=== PATIENT | female | born 1955 | race Caucasian/White ===

== ENCOUNTER → 2019-10-03 | Outpatient (CLI) | payer MEDICARE, SELFPAY ==
[2019-10-03 15:46] LABS: International Normalized Ratio 2.6; Prothrombin Time (Protime)PT. 27.8 SECONDS (11.7-14.9)
== END | disposition home or self-care (01) ==
LOC: LABSPEC 15:14
PROVIDERS: PCP Family Medicine; Visit Provider Family Medicine
DX: I48.0 Paroxysmal atrial fibrillation (principal); Z79.01 Long term (current) use of anticoagulants
CPT/HCPCS: 85610

== ENCOUNTER 2020-02-17 09:46 | Inpatient (IN) | payer MEDICARE, OTHER, SELFPAY ==
[2020-02-17] VITALS (7 sets, daily range): BP systolic 144–164; BP diastolic 67–82; PULSE 63–77; RESP 14–18; TEMP 36.4–36.6; O2SAT 97–100; BMI 24.7; BMI 25.2; BMI 25.3
--- NOTE | 2020-02-17 10:02 | US_ITS ---
STUDY: ABDOMINAL ULTRASOUND - RIGHT UPPER QUADRANT REASON FOR VISIT: Female, 64 years old RUQ PAIN THIS MORNING, WORSE AFTER EATING- PT IS NOT NPO- TECHNIQUE: Ultrasound evaluation of the right upper quadrant was performed with real-time and static chand-scale imaging. TECHNICAL QUALITY: Adequate. COMPARISON: None. FINDINGS: Liver: The liver measures 16.8 cm. There is normal echogenicity of the liver. The bile ducts are within normal limits. There is hepatic color flow. The direction of portal flow is hepatopetal. There is no demonstrated mass lesion. Gallbladder: Normal distended gallbladder. The gallbladder wall measures 3 mm. There is a positive sonographic Sharif''s sign. There is no pericholecystic fluid. There are multiple echogenic structures within the gallbladder, consistent with multiple gallstones. Common Bile Duct (C.B.D.): The common bile duct measures 7 mm. Pancreas: Normal size of the head, body and tail of the pancreas. There is normal echogenicity of the pancreas. There is no demonstrated pancreatic mass or cyst. Right Kidney: Normal size of the right kidney. The right kidney measures 10.8 cm. Normal renal cortex. The right cortex measures 1.4 cm. There is no demonstrated renal mass or cyst. There is no right hydronephrosis. US/Gallbladder IMPRESSION: Cholelithiasis with positive Sharif''s sign. Mildly dilated common bile duct. Electronically Signed: Marco Kuhn MD at 12:43 EDT , Service support ,
--- NOTE | 2020-02-17 10:02 | ED.VIS.GEN ---
History of Present Illness Chief Complaint: Abd Pain Informant: Patient Narrative: 64-year-old female presenting with abdominal pain which started this morning at about after she woke up. She states that she was able to eat a omelette this morning however this made her abdominal pain worse. She localizes it to the right upper quadrant. She has never had any abdominal surgeries. She is not had a fever or chills. She states that she has nausea without vomiting. No diarrhea or constipation. No urinary or vaginal complaints. - Past Medical History (1) Benign essential HTN Status: Chronic Past Medical History - Allergies and Home Meds Allergies/Adverse Reactions: Allergies No Known Allergies Allergy (Verified 02/17/20 09:46) Prior records reviewed: Yes Past Medical History: - - Atrial fibrillation Surgical History: noncontributory Lives: Spouse/ Significant Other Smoking Status: Never smoker Alcohol: None Drugs: None Review of Systems General: Denies: Chills, Fever, Sweats Eyes: Denies: Visual changes - bilaterally, Diplopia ENT: Denies: Rhinorrhea, Sore throat Cardiovascular: Denies: Chest pain, Palpitations Respiratory: Denies: Dyspnea, Cough, Dyspnea on exertion Gastrointestinal: Reports: Abdominal pain, Nausea. Denies: Vomiting, Diarrhea, Constipation, Melena, Hematochezia Musculoskeletal: Denies: Myalgias, Arthralgias, Neck pain Skin: Denies: Rash, Wounds Neurological: Denies: Headache, Weakness, Numbness Psych: Denies: Depression, Anxiety, Suicidal thoughts, Suicidal ideations, -, - Physical Exam Vital Signs/Narrative: Vital Signs Temp Pulse Resp BP Pulse Ox 02/17/20 09:47 97.6 F L 63 16 164/82 H 99 Inital Vital Signs reviewed: Yes General: Well nourished, No Acute Distress Head: Normocephalic, Atraumatic Eyes: Perrl, EOMI. Negative for: Scleral icterus ENT: Moist mucous membranes, No rhinorrhea Cardiovascular: Regular rate, Regular rhythm Abdomen: Soft, Nondistended, Sharif's sign Back: Nontender, Normal Inspection. Negative for: CVA tenderness Extremities: Nontender, No edema Skin: Normal color, No rash. Negative for: Jaundice Neurological: Alert, Oriented x3 Psychological: Normal affect, Normal Mood Diagnostic/Tx/Re-eval Clinical Impression(s) from Imaging Studies Gallbladder Ultrasound 02/17/20 10:02 IMPRESSION: Cholelithiasis with positive Sharif''s sign. Mildly dilated common bile duct. Electronically Signed: Marco Kuhn MD at 12:43 EDT , Service support , Laboratory Data 02/17/20 02/17/20 02/17/20 10:15 10:15 10:15 WBC 6.7 RBC 4.64 Hgb 13.2 Hct 40.8 MCV 87.9 MCH 28.4 MCHC 32.4 RDW Std Deviation 42.9 RDW Coeff of Dle 13.3 Plt Count 226 MPV 9.8 Immature Gran % (Auto) 0.100 Neut % (Auto) 43.8 L Lymph % (Auto) 47.2 H Kenedy % (Auto) 6.9 Eos % (Auto) 1.6 Baso % (Auto) 0.4 Absolute Neuts (auto) 2.9 Absolute Lymphs (auto) 3.16 Nucleated RBC % 0 PT 34.6 H INR 3.5 H* Sodium 138 Potassium 4.1 Chloride 105 Carbon Dioxide 31.0 Anion Gap 2 L BUN 11 Creatinine 0.61 Estim Creat Clear Calc 72.72 Est GFR (MDRD) Af Amer 126 Est GFR (MDRD) Non-Af 104 BUN/Creatinine Ratio 18.0 Glucose 119 H Calcium 9.6 Total Bilirubin 0.30 AST 20 ALT 40 Alkaline Phosphatase 65 Total Protein 7.2 Albumin 3.8 Globulin 3.4 Albumin/Globulin Ratio 1.1 Lipase 131 Urine Color Urine Clarity Urine pH Ur Specific [place] Urine Protein Urine Glucose (UA) Urine Ketones Urine Occult Blood Urine Nitrite Urine Bilirubin Urine Urobilinogen Ur Leukocyte Esterase Urine RBC Urine WBC Ur Squamous Epith Cells Urine Bacteria Urine Mucus 02/17/20 11:30 WBC RBC Hgb Hct MCV MCH MCHC RDW Std Deviation RDW Coeff of Del Plt Count MPV Immature Gran % (Auto) Neut % (Auto) Lymph % (Auto) [place] % (Auto) Eos % (Auto) Baso % (Auto) Absolute Neuts (auto) Absolute Lymphs (auto) Nucleated RBC % PT INR Sodium Potassium Chloride Carbon Dioxide Anion Gap BUN Creatinine Estim Creat Clear Calc Est GFR (MDRD) Af Amer Est GFR (MDRD) Non-Af BUN/Creatinine Ratio Glucose Calcium Total Bilirubin AST ALT Alkaline Phosphatase Total Protein Albumin Globulin Albumin/Globulin Ratio Lipase Urine Color Yellow Urine Clarity Clear Urine pH 6.5 Ur Specific [place] 1.020 Urine Protein Negative Urine Glucose (UA) Normal Urine Ketones Negative Urine Occult Blood Negative Urine Nitrite Negative Urine Bilirubin Negative Urine Urobilinogen Normal Ur Leukocyte Esterase 100 H Urine RBC 0 SEEN Urine WBC 0-5 SEEN Ur Squamous Epith Cells 0 SEEN Urine Bacteria 0 SEEN Urine Mucus 0 SEEN - Medical Decision Making Patient was seen and evaluated on arrival for right upper quadrant pain. She states that it started this morning prior to eating but she felt worse after having an omelette. She denies fever, chills. She has nausea without vomiting. She denies constipation. On exam she has a Sharif sign. Lab work-up was ultimately unremarkable section of supratherapeutic INR. Right upper quadrant ultrasound shows cholelithiasis with dilated common bile duct. Patient was discussed with Dr. Esteban who accepted admission. Impression: 1. Supratherapeutic INR 2. Cholelithiasis dilated common bile duct ED Disposition - Plan for ED Patient: Disposition: Acute Care Hospital [facility]
[2020-02-17] MEDS: 0.9% Normal Saline 1,000 ML 1000 ML IV (10:26)
[2020-02-17] MEDS: Ondansetron 4 MG/2 ML Vial IV (10:26)
[2020-02-17] MEDS: Morphine 4 MG/ML Syringe IV ×2 (10:27→13:31)
[2020-02-17 10:30] LABS: Absolute Lymphocyte Count 3.16 X10^3/uL (0.83-4.51); Absolute Neutrophil Count 2.9 X10^3/uL (2.0-7.7); Basophil# 0.03 X10^3/uL; Basophil% 0.4 % (0-1); Eosinophil# 0.11 X10^3/uL; Eosinophils% 1.6 % (0-5); Hematocrit 40.8 % (37-47); Hemoglobin 13.2 g/dL (12.0-15.0); Lymphocyte # 3.16 X10^3/ul (4.0); Lymphocyte % 47.2 % (19-41); Mean Corp Hgb Conc 32.4 g/dL (32-36); Mean Corpuscular Hgb 28.4 pg (27.0-32.0); Mean Corpuscular Volume 87.9 fL (81-99); Mean Platelet Vol. 9.8 fl (6.2-12.0); Monocyte# 0.46 X10^3/uL; Monocyte% 6.9 % (0-10); NRBC Flagged by Analyzer 0 % (0-5); Neutrophil # 2.93 X10^3/uL (2.7-7.7); Neutrophil % 43.8 % (47-70); Platelet Count 226 K/mm3 (150-450); RBC Distribution Width CV 13.3 % (11.6-14.6); RBC Distribution Width SD 42.9 fl (35.1-43.9); Red Blood Count 4.64 M/mm3 (4.2-5.4); White Blood Count 6.7 K/mm3 (4.4-11.0)
[2020-02-17 10:36] LABS: International Normalized Ratio 3.5; Prothrombin Time (Protime)PT. 34.6 SECONDS (11.7-14.9)
[2020-02-17 10:40] LABS: ALB/GLOB Ratio 1.1 RATIO (0.9-2.4); AST(SGOT) 20 U/L (15-37); Alanine Aminotransfer ALT/SGPT 40 U/L (13-56); Albumin, Serum 3.8 g/dL (3.2-5.0); Alkaline Phosphatase 65 U/L (45-117); Anion Gap 2 (5-15); BUN 11 mg/dL (7-18); Calcium,Total 9.6 mg/dL (8.5-10.1); Chloride 105 mmol/L (98-107); Creatinine, Serum 0.61 mg/dL (0.55-1.02); EST Glomerular Filtration Rate 104 mL/min (>60); Est Glom Filt Rate - Afr Amer 126 mL/min (>60); Estimated Creatinine Clearance 72.72 ml/min; Globulin 3.4 g/dL (2.2-4.2); Glucose 119 mg/dL (74-106); Lipase 131 U/L (73-393); Potassium 4.1 mmol/L (3.5-5.1); Protein, Total 7.2 g/dL (6.4-8.2); Sodium Level 138 mmol/L (136-145)
[2020-02-17 11:37] LABS: Bacteria 0 SEEN /hpf (None Seen); Mucous, Urine 0 SEEN /hpf (<or=2+); Red Blood Cells-Urine 0 SEEN /hpf (0-5); Squamous Epithelial Cells - UA 0 SEEN /hpf (5-10)
[2020-02-17 11:40] LABS: Color, Urine Yellow (Yellow); Glucose, Dipstick Normal (Normal); Ketone-Dipstick Negative (Negative); Leukocyte Esterase-Dipstick 100 /ul (Negative); Nitrite-Dipstick Negative (Negative); Occult Blood-Urine Negative /ul (Negative); Protein-Dipstick Negative (Negative); Urine Bilirubin Dipstick Negative (Negative); Urine Clarity Clear (Clear); Urine Urobilinogen Normal (Normal); Urine pH 6.5 (5.0 - 8.0)
[2020-02-17 11:49] LABS: White Blood Cells 0-5 SEEN /hpf (0-5)
[2020-02-17] MEDS: Ondansetron 4 MG/2 ML Vial IM (13:30)
--- NOTE | 2020-02-17 16:29 | CON.PCM_ITS ---
Problem List (1) Status post placement of cardiac pacemaker Status: Chronic (2) Chronic atrial fibrillation Status: Chronic (3) Depression Status: Chronic (4) Benign essential HTN Status: Chronic Reason for Consult Date of Consultation: 02/17/20 Reason for Consultation: Preoperative medical evaluation. History of Present Illness: The patient is a 64 year old F with past medical history as mentioned above presented to the emergency room because of abdominal pain. She mentioned that over the last couple of days, she has been feeling not well and today morning after she woke up, she started having abdominal pain, right upper quadrant abdominal pain, sharp pain, 8 out of 10 in severity, not radiating, constant pain, associated with nausea without vomiting and without aggravating or relieving factors. She denies fever or chills. She denies upper chest pain, shortness of breath, palpitation, dizziness or lightheadedness. She was admitted for acute cholecystitis by general surgery and I was asked to see the patient for preoperative evaluation as well as postoperative management. Patient lives at home and she does have daily activities without any restrictions. She will history of chronic atrial fibrillation status post pacemaker and she has been on Coumadin for anticoagulation. She will history of hypertension and she has been on lisinopril and metoprolol and her blood pressure has been under control. At this time, her vital signs are stable. Her routine blood work was unremarkable. LFTs and lipase were normal. INR was 3.5. Ultrasound gallbladder revealed gallstones with positive Sharif sign, CBD is 7 mm and admission diagnosis was acute calculus cholecystitis. Past Medical History Past Medical History (Chronic Problems): Chronic Problems Status post placement of cardiac pacemaker (Chronic) Chronic atrial fibrillation (Chronic) Depression (Chronic) Benign essential HTN (Chronic) Allergies No Known Allergies Allergy (Verified 02/17/20 09:46) Home Medications: Ambulatory Orders Medication Instructions Recorded Acetaminophen [Tylenol Extra 1,000 mg PO Q8H PRN PRN 02/17/20 Strength] Alprazolam [Xanax] 0.125 mg PO QHS PRN 02/17/20 Calcium Carbonate/Vitamin D3 1 ea PO DAILY 02/17/20 [Calcium 250+D Tablet] Calcium Carbonate/Vitamin D3 1 tab PO DAILY 02/17/20 [Calcium 500-Vit D3 600 Caplet] Ergocalciferol [Vitamin D] 50,000 unit PO WE 02/17/20 Lisinopril [Prinivil] 10 mg PO QHS 02/17/20 Metoprolol Tartrate 25 mg PO BID 02/17/20 Vitamin B Complex [B Complex] 1 ea PO QHS 02/17/20 Warfarin [Coumadin ([facility])] 3 mg PO WESA 02/17/20 Warfarin [Coumadin ([facility])] 6 mg PO SUMOTUTHFR 02/17/20 Surgical History: hysterectomy, tonsillectomy, - - Spinal fusion. Psychiatric History: Anxiety [employer] INTER[employer] History: No pertinent [employer] history Lives: Spouse/ Significant Other Smoking Status: Former smoker Alcohol: None Drugs: None - *Family History Maternal History Items: No pertinent history Paternal History Items: No pertinent history Review of Systems Constitutional: Denies: Anorexia, Chills, Fever, Weakness, Fatigue Eyes: Denies: Blurred vision, Double vision, Drainage, Redness HEENT: Denies: Difficulty Hearing, Ear Pain, Eye Pain, Nasal Congestion, Sore Throat Cardiovascular: Denies: Chest Pain, Chest Pressure, Edema, Heaviness, Light Headedness, Palpitations, Syncope Respiratory: Denies: Cough, Pleuritic Pain, Shortness of Breath, Sputum production, Wheezing Gastrointestinal: Reports: Abdominal Pain, Nausea. Denies: Constipation, Diarrhea, Vomiting Genitourinary: Denies: Dysuria, Frequency, Hematuria Musculoskeletal: Denies: Arm Pain, Back Pain, Foot Pain Skin: Denies: Dryness, Rash Neurological: Denies: Balance problems, Double vision, Change in Speech, Slurred speech, Confusion, Headaches, Incoordination Psychiatric: Reports: Anxiety. Denies: Depression Endocrine: Denies: Change in Body Habitus, Polydipsia, Polyuria - Physical Exam Vitals/I&O's: Vital Signs Temp Pulse Resp BP Pulse Ox 98 F 77 16 144/82 H 98 02/17/20 14:54 02/17/20 14:54 02/17/20 14:54 02/17/20 14:54 02/17/20 14:54 Oxygen Delivery Method Room Air Weight: 138 lb 1.6 oz Body Mass Index (BMI) 25.2 Intake and Output for Last 24 Hours 02/15/20 02/16/20 02/17/20 23:59 23:59 23:59 Intake Total 1000 / 1000 Balance 1000 / 1000 General: Alert, Oriented x3, Cooperative, No apparent distress HEENT: Atraumatic, PERRLA, EOMI, Normocephalic Oral: Moist Mucosa, No Gingival or Mucosal Lesions/ Ulcerations Neck: Supple, No JVD, Negative Carotid Bruits, Trachea Midline, Thyroid Normal Size and Texture Lungs: Clear to auscultation, Normal air movement, No rhonchi, No wheeze, No rales, Diminished Cardiovascular: Normal S1, Normal S2, No murmurs, PMI Normal, Irregular Rate Abdomen: Bowel Sounds Present, Soft, Non-Distended, No Hepato-splenomegaly, Tender - Right upper quadrant tenderness, no guarding or rigidity. Extremities: No clubbing, No cyanosis, No edema Skin: No rashes, No breakdown Lymphatic: No Cervical, Supraclavicular, or Inguinal Adenopathy Neurological: Cranial nerves II-XII grossly intact, Motor Exam 5/5 strength throughout Psych/Mental Status: Normal Affect, Appropriate, Alert and oriented to time, place, person, mood and affect Laboratory Results 02/17/20 10:15: WBC 6.7, RBC 4.64, Hgb 13.2, Hct 40.8, MCV 87.9, MCH 28.4, MCHC 32.4, RDW Std Deviation 42.9, RDW Coeff of Del 13.3, Plt Count 226, MPV 9.8, Immature Gran % (Auto) 0.100, Neut % (Auto) 43.8 L, Lymph % (Auto) 47.2 H, [place] % (Auto) 6.9, Eos % (Auto) 1.6, Baso % (Auto) 0.4, Absolute Neuts (auto) 2.9, Absolute Lymphs (auto) 3.16, Nucleated RBC % 0 02/17/20 10:15: Sodium 138, Potassium 4.1, Chloride 105, Carbon Dioxide 31.0, Anion Gap 2 L, BUN 11, Creatinine 0.61, Estim Creat Clear Calc 72.72, Est GFR (MDRD) Af Amer 126, Est GFR (MDRD) Non-Af 104, BUN/Creatinine Ratio 18.0, Glucose 119 H, Calcium 9.6, Total Bilirubin 0.30, AST 20, ALT 40, Alkaline Phosphatase 65, Total Protein 7.2, Albumin 3.8, Globulin 3.4, Albumin/Globulin Ratio 1.1, Lipase 131 02/17/20 10:15: PT 34.6 H, INR 3.5 H* 02/17/20 11:30: Urine Color Yellow, Urine Clarity Clear, Urine pH 6.5, Ur Specific [place] 1.020, Urine Protein Negative, Urine Glucose (UA) Normal, Urine Ketones Negative, Urine Occult Blood Negative, Urine Nitrite Negative, Urine Bilirubin Negative, Urine Urobilinogen Normal, Ur Leukocyte Esterase 100 H, Urine RBC 0 SEEN, Urine WBC 0-5 SEEN, Ur Squamous Epith Cells 0 SEEN, Urine Bacteria 0 SEEN, Urine Mucus 0 SEEN Clinical Impression(s) from Imaging Studies Gallbladder Ultrasound 02/17/20 10:02 IMPRESSION: Cholelithiasis with positive Sharif''s sign. Mildly dilated common bile duct. Electronically Signed: Marco Kuhn MD at 12:43 EDT , Service support , Current Medications Hydrocodone Bitart/Acetaminophen ([place] 5mg-325mg) 1 tablet PO Q4H PRN PRN PRN Reason: Pain Score 1-5 Alprazolam (Xanax) 0.125 mg PO QHS PRN PRN Reason: ANXIETY Sodium Chloride () 1,000 mls @ 75 mls/hr IV .[id number] SUNI Cefotetan Disodium 1 gm/ (Sodium Chloride) 50 mls @ 100 mls/hr IV Q12 SUNI Lisinopril (Zestril) 10 mg PO QHS SUNI Metoprolol Tartrate (Lopressor (Beta Scott)) 25 mg PO BID SUNI Morphine Sulfate () 2 mg IV Q1H PRN PRN PRN Reason: Pain Score 6-10 Ondansetron HCl (Zofran) 4 mg IV Q8H PRN PRN PRN Reason: NAUSEA/VOMITING Sodium Chloride () 10 - 40 ml IV UD PRN PRN Reason: SALINE FLUSH Assessment/Plan This is a 64 years old female patient presented to the emergency room because of abdominal pain, found to have findings consistent with acute cholecystitis and I am seeing this patient for preoperative evaluation as well as postoperative medical management. #1 abdominal pain/acute calculus cholecystitis: Ultrasound gallbladder reviewed. LFT and lipase were unremarkable. Patient is afebrile, no leukocytosis. She does have significant right upper quadrant tenderness. She was admitted by general surgery, started on IV antibiotics. She is on IV fluids and IV morphine as needed for pain. General surgery on the case, planning for surgery in the next day or 2. #2 preoperative evaluation: Patient with past history of chronic atrial fibrillation on Coumadin, history of hypertension. Patient lives at home and doing her daily activities without restrictions. Based on her age, past medical history, functional status and kidney function, and estimated risk for perioperative myocardial infarction or cardiac arrest is 0.20%. Patient had 2D echocardiogram on November, revealed ejection fraction of 64% and there was no change compared to echocardiogram from November,. She had a stress test back on November, that showed no evidence of stress-induced myocardial ischemia. Based on ACS NSQIP surgical risk calculator, her risk for serious complications is below average. Plan: Preoperative EKG, chest x-ray. If both chest x-ray and EKG were unremarkable, we can proceed with surgery. #3 chronic atrial fibrillation: Currently, rate is controlled, continue metoprolol for rate control. INR is 3.5, alternate, give vitamin K, repeat INR tomorrow morning. #4 hypertension: Blood pressure stable, continue lisinopril and metoprolol. #5 anxiety: Continue Xanax as needed. #6 DVT prophylaxis: SCDs. This note was generated with [employer] dictation software. It may contain incorrect words, spelling, and punctuation that were not noted in checking the note before signing. Inpatient E&M: 89294 Init Hosp L2
[2020-02-17] MEDS: 0.9% Normal Saline 1,000 ML 75 ML IV (16:32)
[2020-02-17] MEDS: 0.9% Saline Lock 10 ML Syringe IV ×2 (16:33→22:56)
--- NOTE | 2020-02-17 16:33 | PCM.HP.BLA ---
History and Physical Date of Admission: 02/17/20 Chief Complaint - abdominal pain HISTORY OF PRESENT ILLNESS: 64 y/o WF with cardiac arrythmia with pacemaker implant presents with right upper quadrant abdominal pain for < 1 day. Very severe and sharp, she presented to ED. Denies previous such pain. Work up in the [facility] ED - normal WBC, normal LFTs. Gallbladder US with multiple gallstones noted. Has nausea, denies emesis. Patient with intractable pain and therefore admitted to hospital for pain control. She is also on coumadin for chronic atrial fibrillation - INR is 3.5 with PT of 34.6. PAST MEDICAL HISTORY Anxiety ? Atrial flutter (HCC) ? Essential hypertension, benign ? Hyperlipidemia ? Paroxysmal atrial fibrillation (HCC) ? PMH - PAST MEDICAL HISTORY OF ? ? back pain, scoliosis, s/p fusion in 1970 Prediabetes ? Tachycardia-bradycardia syndrome (HCC) ?paroxysmal atrial fibrillation and evidence of tachy-bradycardia syndrome noted on recent Holter monitor. ? Echocardiogram 11/18/19 CONCLUSIONS: - Technically difficult exam due to body habitus. - Exam indication: Sustained atrial fibrillation - The left ventricle is normal in size. Left ventricular systolic function is normal. EF = 64 ? 5% (2D biplane) Definity contrast used for endocardial border detection. Left ventricular diastolic function was not evaluated due to AF. - The right ventricle is normal in size. Right ventricular systolic function is normal. - The left atrial cavity is mildly dilated. - There are no significant valvular abnormalities. - Exam was compared with the prior echocardiographic exam performed on 11/16/2017 There is no significant change Lexiscan Myoview Stress 11/24/17 CONCLUSIONS: ? 1. SPECT Perfusion Study: Normal. ? 2. There is no scintigraphic evidence for inducible ischemia. ? 3. No evidence of scarred myocardium. ? 4. Functional capacity N/A (pharmacological). ? 5. Left ventricle is normal in size. The left ventricle systolic function is hyperdynamic. ? 6. Right ventricle is normal in size. The right ventricle systolic function is normal. ? 7. This is a low risk scan. ?Gated Stress FBP ?LVEF % 77? ? PAST SURGICAL HISTORY BASIC PACEMAKER DUAL CHAMBER Left 12/24/2019 ? Dual-chamber pacemaker (Medtronic, MRI compatible after [address] weeks) [address] Dr[address] Mart at [facility] 12/24/19 and underwent procedure on the same day by Dr. Mart for insertion of dual-chamber permanent pacemaker left side of chest due to slow heart rate at times LIGATE FALLOPIAN TUBE ? 1982 ? Tubal ligation, incidental appy PAST SURGICAL HISTORY OF ? 1970 ? Spinal fusion for scoliosis x 2 REMOVAL OF TONSILS,<12 Y/O ? 1959 ? Tonsillectomy VAGINAL HYSTERECTOMY ? 1986 ? Hysterectomy, vaginal ? FAMILY HISTORY ? Hypertension Mother ? ? Emphysema Mother ? ? COPD ? Cancer Father ? ? Lung, brain ? Cancer Sister ? ? Leukemia ? Cancer Sister ? ? Thyroid ? ALLERGIES ? Grass Pollen Cough ? ? sneezing ?? MEDICATIONS: ? metoprolol tartrate, short acting, (LOPRESSOR) 25 mg tablet Take 1 tablet by mouth every 12 hours. ? warfarin (COUMADIN) 6 mg tablet 3 mg every Mon, Mon; 6 mg all other days ? calcium carbonate (CALCIUM 600) 600 mg calcium (1,500 mg) tab Take 600 mg by mouth once daily. ? vitamin B complex (B COMPLEX 1 ORAL) Take 1 tablet by mouth once daily. ? ALPRAZolam (XANAX) 0.25 mg tablet Take 1 tablet by mouth twice daily as needed for up to 90 days. ? lisinopril (ZESTRIL, PRINIVIL) 10 mg tablet Take 1 tablet by mouth once daily. ? cholecalciferol, Vitamin D3, (VITAMIN D3) 50,000 unit cap capsule Take 1 capsule by mouth one time a week. ? nitroglycerin sublingual (NITROQUICK) 0.4 mg SL tablet Dissolve 0.4mg tab (1tab) under tongue every 5min as needed for chest pain. If no response after max 3 tabs go to ED/notify doctor. ? Magnesium 250 mg tab Take 1 tablet by mouth once daily. ?? ? SOCIAL HISTORY Tobacco Use ? Smoking status: Former Smoker ? ? Quit date: 05/08/1974 ? ? Years since quittin.7 ? Smokeless tobacco: Never Used ? Tobacco comment: 40 + years ago Substance Use Topics ? Alcohol use: No ? Drug use: Not Currently ? ? Frequency: 1.0 times per week ? REVIEW OF SYSTEMS: General - denies fevers, denies anorexia, denies weight loss Cardiovascular - denies chest pain, recent placement of dual chamber pacemaker see above Pulmonary - denies shortness of breath, denies coughing up blood Gastrointestinal - see HPI Neurological - denies seizures, denies chronic numbness/weakness of extremities, denies chronic headaches Genitourinary - denies burning with urination, denies blood in urine Hematological - on coumadin Skin - denies nonhealing skin wounds Musculoskeletal - no new muscle/bone pain Endocrine - has pre-diabetes, no thyroid problems Psychological ? denies hallucinations ? PHYSICAL EXAM: BP 156/77 HR 72 RR 16 Temp 97.6F Ht: 5'2 Wt: 138# ? General Appearance: Well appearing, alert, in no acute distress, well-hydrated, well nourished.. Lungs: Lungs clear to auscultation. No wheezing, rhonchi, rales.. Heart: RRR without murmur, gallop, or rubs. No ectopy. Abdomen: soft with right upper quadrant tenderness with Sharif's sign Extremities without pitting edema Neuro - non focal Psych - calm and appropriate IMPRESSION: intractable RUQ abdominal pain cholelithiasis DISCUSSION/PLAN I have discussed the above with the patient. I have offered the patient the procedure of laparoscopic cholecystectomy possible cholangiograms. I have explained the procedure to the patient. I have counseled the patient as to the risks of the procedure, including but not limited to: infection, bleeding, injury to any blood vessels/nerves, scar tissue, injury to any intraabdominal organs, injury to kidney/ureters, injury to bowel/bladder, injury to the common bile duct/biliary tree, bile leakage, intraabdominal abscess/bleeding, hernias at incisional sites, wound infections, possible open procedure, complications of anesthesia, postoperative pneumonia/cardiac problems/blood clots etc. the patient understands. The patient was offered a surgery/procedure. The provider and patient have discussed in detail the risk of exposure to and/or potential harm posed by the COVID-19 virus with having a surgery/procedure at this time versus the risk of delaying the surgery/procedure. It is not possible to know either the risk of delaying the surgery or procedure or chance of getting an infection with perfect accuracy, but a joint decision was made between the patient and the provider to proceed at this time with the scheduled surgery/procedure. She wishes to proceed. Will tentatively schedule for surgery on Monday. (I tried to contact the surgery scheduling desk to schedule this patient -prior to 5:00 pm - but no one is answering = and I have left a message) I have told patient that if she feels improved in the morning, I can discharge her with plans to have her return Monday. I have answered all questions to the patient?s satisfaction and the patient has no further questions. Appreciate Internal Medicine consultation for perioperative medical management of this patient.
--- NOTE | 2020-02-17 16:40 | EKG12_ITS ---
Test Reason : PRE-OP Blood Pressure : / mmHG Vent. Rate : 062 BPM Atrial Rate : 248 BPM P-R Int : 000 ms QRS Dur : 094 ms QT Int : 432 ms P-R-T Axes : 094 055 -29 degrees QTc Int : 438 ms Atrial flutter with variable A-V block T wave abnormality, consider inferior ischemia Abnormal ECG When compared with ECG of 09-APR-2011 05:50, Atrial flutter has replaced Sinus rhythm T wave inversion now evident in Inferior leads Nonspecific T wave abnormality now evident in Lateral leads Confirmed by TAYLOR BOLTON, BRANDON ([id number]), business editor MARY WOLF ([id number]) on 02/24/2020 9:00:07 A M Referred By: MAXX Confirmed By:SAL VAZQUEZ MD
--- NOTE | 2020-02-17 16:50 | RAD_ITS ---
STUDY: X-RAY CHEST REASON FOR EXAM: Female, 64 years old. Preop, surgery on Monday. TECHNIQUE: PA and lateral views of the chest. COMPARISON: Comparison is made with prior study dated 04/08/2011. FINDINGS: Hyperinflation. The lungs are clear. Mild blunting of both costophrenic angles. Normal size heart. Left dual-chamber pacemaker is in situ. Normal mediastinum and katie. Normal visualized pulmonary arteries. Normal visualized aortic arch and descending thoracic aorta. There are diffuse degenerative changes of the visualized thoracic spine. Marked degree of the dextroscoliosis of the thoracic spine and levoscoliosis of the visualized lumbar spine. Normal visualized ribs, clavicles, and shoulders. There is no demonstrated abnormality of the visualized soft tissue structures of the upper abdomen. RAD/Chest PA and Lateral IMPRESSION: Hyperinflation. Scoliosis. The lungs are clear. Electronically Signed: Joshua Zhang, at 8:37 EDT , Service support ,
[2020-02-17] MEDS: Phytonadione (Vit K1) 5 MG TABLET PO (17:23)
[2020-02-17] MEDS: Morphine 2 MG/ML Syringe IV ×2 (18:15→22:56)
[2020-02-17] MEDS: ALPRAZolam 0.25 MG Tablet PO (22:06)
[2020-02-17] MEDS: Metoprolol Tartrate 25 MG Tablet PO (22:10)
[2020-02-17] MEDS: Lisinopril 10 MG Tablet PO (22:10)
[2020-02-18] MEDS: 0.9% Normal Saline 1,000 ML 75 ML IV ×2 (04:39→18:21)
[2020-02-18 04:40] VITALS: BP 125/71; PULSE 60; RESP 18; TEMP 36.8; O2SAT 96
[2020-02-18] MEDS: Morphine 2 MG/ML Syringe IV ×4 (04:45→22:19)
[2020-02-18] MEDS: 0.9% Saline Lock 10 ML Syringe IV ×4 (04:48→22:19)
[2020-02-18 06:06] LABS: Prothrombin Time (Protime)PT. 34.5 SECONDS (11.7-14.9)
[2020-02-18 06:08] LABS: International Normalized Ratio 3.5
[2020-02-18 08:25] LABS: Hemoglobin A1c 6.1 % (3.8-5.6)
[2020-02-18] MEDS: Phytonadione (Vit K1) 5 MG TABLET PO (08:29)
--- NOTE | 2020-02-18 09:46 | PCM.PN.HOSP ---
Reason for Visit: Follow-up for acute cholecystitis, perioperative management Objective: Seen and examined. Patient has left subclavicular pacemaker. History of chronic A. fib on Coumadin. INR supratherapeutic. Patient abdominal pain is controlled. Her symptoms are started with nausea, burping and bloating sensation that worsens with right upper quadrant abdominal pain for 1 day, severe in nature, stabbing in quality. Right upper quadrant gallbladder ultrasound shows multiple gallstones. No fever. Physical exam General: Alert, Oriented x3, Cooperative HEENT: Atraumatic, PERRLA, EOMI, Normocephalic Oral: No Gingival or Mucosal Lesions/ Ulcerations Neck: Supple, No JVD, Negative Carotid Bruits Lungs: Air entry equal in bilateral lung bases. No crepitation/rhonchi Cardiovascular: Regular rate and rhythm, Normal S1, Normal S2, Left subclavian pacemaker. No murmur Abdomen: Bowel Sounds Present, Soft, mild right upper quadrant tenderness present on deep inspiration. Non-Distended : No renal angle tenderness. No suprapubic tenderness. Extremities: No edema, Capillary Refill Less than 3 Seconds Skin: No rashes, No breakdown Musculoskeletal: No Tenderness to Palpation of Joints or Extremities Neurological: Cranial nerves II-XII grossly intact, Deep Tendon Reflexes 2+/4 and Symmetrical, Neuro grossly intact Psych/Mental Status: Normal Affect, Appropriate. Vitals/I&O's: Vital Signs Temp Pulse Resp BP Pulse Ox 98.3 F 60 18 125/71 H 96 02/18/20 04:40 02/18/20 04:40 02/18/20 04:40 02/18/20 04:40 02/18/20 04:40 Oxygen Delivery Method Room Air Weight: 138 lb 1.6 oz Body Mass Index (BMI) 25.2 Intake and Output for Last 24 Hours 02/16/20 02/17/20 02/18/20 23:59 23:59 23:59 Intake Total 2732.5 / 2732.5 678.75 / 678.75 Output Total 400 / 400 Balance 2332.5 / 2332.5 678.75 / 678.75 Laboratory Results 02/17/20 10:15: WBC 6.7, RBC 4.64, Hgb 13.2, Hct 40.8, MCV 87.9, MCH 28.4, MCHC 32.4, RDW Std Deviation 42.9, RDW Coeff of Del 13.3, Plt Count 226, MPV 9.8, Immature Gran % (Auto) 0.100, Neut % (Auto) 43.8 L, Lymph % (Auto) 47.2 H, [place] % (Auto) 6.9, Eos % (Auto) 1.6, Baso % (Auto) 0.4, Absolute Neuts (auto) 2.9, Absolute Lymphs (auto) 3.16, Nucleated RBC % 0 02/17/20 10:15: Sodium 138, Potassium 4.1, Chloride 105, Carbon Dioxide 31.0, Anion Gap 2 L, BUN 11, Creatinine 0.61, Estim Creat Clear Calc 72.72, Est GFR (MDRD) Af Amer 126, Est GFR (MDRD) Non-Af 104, BUN/Creatinine Ratio 18.0, Glucose 119 H, Calcium 9.6, Total Bilirubin 0.30, AST 20, ALT 40, Alkaline Phosphatase 65, Total Protein 7.2, Albumin 3.8, Globulin 3.4, Albumin/Globulin Ratio 1.1, Lipase 131 02/17/20 10:15: PT 34.6 H, INR 3.5 H* 02/17/20 11:30: Urine Color Yellow, Urine Clarity Clear, Urine pH 6.5, Ur Specific [place] 1.020, Urine Protein Negative, Urine Glucose (UA) Normal, Urine Ketones Negative, Urine Occult Blood Negative, Urine Nitrite Negative, Urine Bilirubin Negative, Urine Urobilinogen Normal, Ur Leukocyte Esterase 100 H, Urine RBC 0 SEEN, Urine WBC 0-5 SEEN, Ur Squamous Epith Cells 0 SEEN, Urine Bacteria 0 SEEN, Urine Mucus 0 SEEN 02/18/20 05:30: PT 34.5 H, INR 3.5 H* 02/18/20 05:30: Hemoglobin A1c 6.1 H Current Medications Hydrocodone Bitart/Acetaminophen ([place] 5mg-325mg) 1 tablet PO Q4H PRN PRN PRN Reason: Pain Score 1-5 Alprazolam (Xanax) 0.25 mg PO QHS PRN PRN Reason: ANXIETY Last Admin: 02/17/20 22:06 Dose: 0.25 mg Documented by: Sodium Chloride () 1,000 mls @ 75 mls/hr IV .[id number] SUNI Last Admin: 02/18/20 04:39 Dose: 75 mls/hr Documented by: Cefotetan Disodium 1 gm/ (Sodium Chloride) 50 mls @ 100 mls/hr IV Q12 [facility] Last Infusion: 02/17/20 22:41 Dose: Infused Documented by: Lisinopril (Zestril) 10 mg PO QHS [facility] Last Admin: 02/17/20 22:10 Dose: 10 mg Documented by: Metoprolol Tartrate (Lopressor (Beta Scott)) 25 mg PO BID [facility] Last Admin: 02/17/20 22:10 Dose: 25 mg Documented by: Morphine Sulfate () 2 mg IV Q1H PRN PRN PRN Reason: Pain Score 6-10 Last Admin: 02/18/20 04:45 Dose: 2 mg Documented by: Ondansetron HCl (Zofran) 4 mg IV Q8H PRN PRN PRN Reason: NAUSEA/VOMITING Sodium Chloride () 10 - 40 ml IV UD PRN PRN Reason: SALINE FLUSH Last Admin: 02/18/20 04:48 Dose: 10 ml Documented by: Medical Necessity - Tobacco Use Smoking Status: Former smoker Tobacco Use: Cigarettes Assessment/Plan This is a 64 years old female patient presented to the emergency room because of abdominal pain, found to have findings consistent with acute cholecystitis and I am seeing this patient for preoperative evaluation as well as postoperative medical management. #1 acute calculus cholecystitis: Patient heart rate and blood pressure controlled. Gallbladder ultrasound shows multiple gallstones, GB wall 3 mm and CBD 7 mm mildly dilated. INR is still elevated. Patient had total 10 mg vitamin K. If INR is still elevated tomorrow a.m., will need 2 units of FFP for surgery. Plan for lap cholecystectomy tomorrow. #2 preoperative evaluation: Patient with past history of chronic atrial fibrillation on Coumadin, history of hypertension. Based on her age, past medical history, functional status and kidney function, and estimated risk for perioperative myocardial infarction or cardiac arrest is 0.20%. Patient had 2D echocardiogram on November, revealed ejection fraction of 64% and there was no change compared to echocardiogram from November,. She had a stress test back on November, that showed no evidence of stress-induced myocardial ischemia. Based on ACS NSQIP surgical risk calculator, her risk for serious complications is below average. Chest x-ray individually reviewed shows lungs clear with hyperinflation. Pacemaker on left subclavicular line. Twelve-lead EKG shows A. fib at 62 bpm. Nonspecific T wave abnormality. #3 chronic atrial fibrillation: Currently, rate is controlled, continue metoprolol for rate control. INR is 3.5, alternate, give vitamin K, repeat INR tomorrow morning. #4 hypertension: Blood pressure stable, continue lisinopril and metoprolol. #5 anxiety: Continue Xanax as needed. #6 DVT prophylaxis: SCDs. Clinical Impression(s) from Imaging Studies Gallbladder Ultrasound 02/17/20 10:02 IMPRESSION: Cholelithiasis with positive Sharif''s sign. Mildly dilated common bile duct. Chest X-Ray 02/17/20 16:50 IMPRESSION: Hyperinflation. Scoliosis. The lungs are clear. Inpatient E&M: 25560 Subs Hosp L2
[2020-02-18 09:58] VITALS: PULSE 63
[2020-02-18] MEDS: Metoprolol Tartrate 25 MG Tablet PO ×2 (09:58→22:18)
[2020-02-18 10:15] VITALS: BP 153/81; PULSE 68; RESP 14; TEMP 36.8; O2SAT 100
[2020-02-18 12:59] LABS: International Normalized Ratio 2.3
--- NOTE | 2020-02-18 13:22 | NURSING ---
Spoke with [facility] Cardiology office, CIED form was faxed 02/17/20 and not return form noted at this time. Office stated to fax to the device clinic at [phone]. Form faxed at at this time.
--- NOTE | 2020-02-18 13:55 | PN.SURG_ITS ---
Subjective: patient still require IV pain medications, states that she does not feel comfortable - Physical Exam Vitals/I&O's: Vital Signs Temp Pulse Resp BP Pulse Ox 98.2 F 68 14 153/81 H 100 02/18/20 10:15 02/18/20 10:15 02/18/20 10:15 02/18/20 10:15 02/18/20 10:15 Oxygen Delivery Method Room Air Weight: 62.641 kg Body Mass Index (BMI) 25.2 Intake and Output for Last 24 Hours 02/16/20 02/17/20 02/18/20 23:59 23:59 23:59 Intake Total 2732.5 / 2732.5 1113.75 / 1113.75 Output Total 400 / 400 Balance 2332.5 / 2332.5 1113.75 / 1113.75 General: Alert, Oriented x3 HEENT: Atraumatic Oral: Moist Mucosa Neck: Supple Lungs: Normal air movement Abdomen: Bowel Sounds Present, Soft Laboratory Results 02/18/20 05:30: PT 34.5 H, INR 3.5 H* 02/18/20 05:30: Hemoglobin A1c 6.1 H 02/18/20 12:30: PT 25.0 H, INR 2.3 Current Medications Hydrocodone Bitart/Acetaminophen ([place] 5mg-325mg) 1 tablet PO Q4H PRN PRN PRN Reason: Pain Score 1-5 Alprazolam (Xanax) 0.25 mg PO QHS PRN PRN Reason: ANXIETY Last Admin: 02/17/20 22:06 Dose: 0.25 mg Documented by: Sodium Chloride () 1,000 mls @ 75 mls/hr IV .[id number] [facility] Last Infusion: 02/18/20 10:17 Dose: 75 mls/hr Documented by: Cefotetan Disodium 1 gm/ (Sodium Chloride) 50 mls @ 100 mls/hr IV Q12 [facility] Last Infusion: 02/18/20 10:17 Dose: Infused Documented by: Lisinopril (Zestril) 10 mg PO QHS [facility] Last Admin: 02/17/20 22:10 Dose: 10 mg Documented by: Metoprolol Tartrate (Lopressor (Beta Scott)) 25 mg PO BID [facility] Last Admin: 02/18/20 09:58 Dose: 25 mg Documented by: Morphine Sulfate () 2 mg IV Q1H PRN PRN PRN Reason: Pain Score 6-10 Last Admin: 02/18/20 09:47 Dose: 2 mg Documented by: Ondansetron HCl (Zofran) 4 mg IV Q8H PRN PRN PRN Reason: NAUSEA/VOMITING Sodium Chloride () 10 - 40 ml IV UD PRN PRN Reason: SALINE FLUSH Last Admin: 02/18/20 09:48 Dose: 10 ml Documented by: Medical Necessity - Tobacco Use Smoking Status: Former smoker Tobacco Use: Cigarettes Assessment/Plan Impression: RUQ abdominal pain, intractable pain, cholelithiasis Plan: scheduled for surgery tomorrow at around 14:00 I have once again counseled patient as to risks/benefits, she understands and wishes to proceed. INR is now therapeutic (it was above therapeutic levels), will recheck INR tomorrow am.
--- NOTE | 2020-02-18 15:33 | NURSING ---
RN CM Assessment Introduced role of RN CM to patient. Patient is alert, oriented and able to participate in RN CM Assessment. Care providers, pharmacy, and demographics verified. Admit Dx: RUQ Abd Pain, Cholelithiasis Re-Admit: No Barriers/Issues: None PCP: Byron Shaw Specialists: Cardio- Dr Griffin at [facility] Preferred Pharmacy: [facility] Insurance: [facility] A[facility], [employer] Supp Rx Benefit: Yes LNOK: Lamine Alves LW/HPOA: States has both completed, aware if brought in a copy will be scanned on file. HPOA- Dtr Debra Sweet #[phone] Living Arrangements: Lives with her in a mobile home with 2 steps to enter home ADL?s: Independent with ambulation and ADLs Transportation: Both patient and her drive, will transport upon DC DME: None HHC: None SNF: None Goal: Home and does not think she will have any needs. Denies any issues, concerns or questions with DC planning at this time. Aware RNCM will remain available should any need arise. DC PLAN: Home and no needs identified at this time. TERRA Handy
[2020-02-18 16:00] VITALS: BP 125/67; PULSE 68; RESP 14; TEMP 36.6; O2SAT 100
[2020-02-18] MEDS: Acetaminophen 325 MG Tablet 650 MG PO (19:19)
[2020-02-18 22:10] VITALS: BP 154/64; PULSE 65; RESP 18; TEMP 36.7; O2SAT 98
[2020-02-18] MEDS: Docusate Sodium 100 MG Capsule PO (22:17)
[2020-02-18] MEDS: Lisinopril 10 MG Tablet PO (22:17)
[2020-02-18] MEDS: ALPRAZolam 0.25 MG Tablet PO (22:17)
[2020-02-18 22:18] VITALS: BP 154/64; PULSE 65
[2020-02-19 04:24] VITALS: BP 151/73; PULSE 55; RESP 18; TEMP 36.4; O2SAT 100
[2020-02-19] MEDS: 0.9% Saline Lock 10 ML Syringe IV ×5 (04:28→23:43)
[2020-02-19] MEDS: Morphine 2 MG/ML Syringe IV ×5 (04:28→23:43)
[2020-02-19] MEDS: Acetaminophen 325 MG Tablet 650 MG PO ×2 (05:55→14:55)
[2020-02-19 06:29] LABS: International Normalized Ratio 1.7; Prothrombin Time (Protime)PT. 19.5 SECONDS (11.7-14.9)
[2020-02-19] MEDS: 0.9% Normal Saline 1,000 ML 75 ML IV ×2 (07:29→21:38)
[2020-02-19 09:32] VITALS: PULSE 64
[2020-02-19] MEDS: Metoprolol Tartrate 25 MG Tablet PO ×2 (09:32→21:38)
[2020-02-19 10:27] VITALS: BP 156/68; PULSE 64; RESP 14; TEMP 36.3; O2SAT 100
[2020-02-19 14:48] VITALS: BP 160/71; PULSE 61; RESP 14; TEMP 36.6; O2SAT 100
--- NOTE | 2020-02-19 16:36 | PCM.PROGNOTE ---
Subjective: Patient was seen and examined today, her surgery was canceled by anesthesia, they feel the patient needs clearance from cardiology to undergo surgery. With Dr. Esteban about this and also cardiology who is seeing her in consultation. - Physical Exam Vitals/I&O's: Vital Signs Temp Pulse Resp BP Pulse Ox 97.9 F 61 14 160/71 H 100 02/19/20 14:48 02/19/20 14:48 02/19/20 14:48 02/19/20 14:48 02/19/20 14:48 Oxygen Delivery Method Room Air Weight: 62.641 kg Body Mass Index (BMI) 25.2 Intake and Output for Last 24 Hours 02/17/20 02/18/20 02/19/20 23:59 23:59 23:59 Intake Total 2732.5 / 2732.5 3168.75 / 3168.75 1391.25 / 1391.25 Output Total 400 / 400 Balance 2332.5 / 2332.5 3168.75 / 3168.75 1391.25 / 1391.25 General: Alert, Oriented x3, Cooperative, No apparent distress, Well developed, Well nourished HEENT: Atraumatic, PERRLA, EOMI, Normocephalic Oral: Moist Mucosa Neck: Supple, No JVD, Trachea Midline, Thyroid Normal Size and Texture Lungs: Clear to auscultation, Normal air movement, No rhonchi, No wheeze, No rales Cardiovascular: Regular rate, Regular Rhythm, Normal S1, Normal S2, No murmurs, PMI Normal, No rub noted, No Gallop Abdomen: Bowel Sounds Present, Soft, Non-Distended Extremities: No clubbing, No cyanosis, No edema, Capillary Refill Less than 3 Seconds Skin: No rashes, No breakdown Musculoskeletal: No Tenderness to Palpation of Joints or Extremities Neurological: Cranial nerves II-XII grossly intact, Neuro grossly intact, Sensory exam intact to light touch and pain, Coordination normal Psych/Mental Status: Normal Affect, Appropriate, Alert and oriented to time, place, person, mood and affect Laboratory Results 02/19/20 05:20: PT 19.5 H, INR 1.7 Current Medications Acetaminophen (Acetaminophen 325 Mg Tablet) 650 mg PO Q4H PRN PRN PRN Reason: Pain Score 1-10 Last Admin: 02/19/20 14:55 Dose: 650 mg Documented by: Hydrocodone Bitart/Acetaminophen ([place] 5mg-325mg) 1 tablet PO Q4H PRN PRN PRN Reason: Pain Score 1-5 Alprazolam (Xanax) 0.25 mg PO QHS PRN PRN Reason: ANXIETY Last Admin: 02/18/20 22:17 Dose: 0.25 mg Documented by: Docusate Sodium (Docusate Sodium 100 Mg Capsule) 100 mg PO BID PRN PRN Reason: Constipation Last Admin: 02/18/20 22:17 Dose: 100 mg Documented by: Sodium Chloride () 1,000 mls @ 75 mls/hr IV .[id number] [facility] Last Infusion: 02/19/20 10:02 Dose: 75 mls/hr Documented by: Cefotetan Disodium 1 gm/ (Sodium Chloride) 50 mls @ 100 mls/hr IV Q12 [facility] Last Infusion: 02/19/20 10:02 Dose: Infused Documented by: Lisinopril (Zestril) 10 mg PO QHS [facility]I Last Admin: 02/18/20 22:17 Dose: 10 mg Documented by: Metoprolol Tartrate (Lopressor (Beta Scott)) 25 mg PO BID [facility]I Last Admin: 02/19/20 09:32 Dose: 25 mg Documented by: Morphine Sulfate () 2 mg IV Q1H PRN PRN PRN Reason: Pain Score 6-10 Last Admin: 02/19/20 14:56 Dose: 2 mg Documented by: Ondansetron HCl (Zofran) 4 mg IV Q8H PRN PRN PRN Reason: NAUSEA/VOMITING Sodium Chloride () 10 - 40 ml IV UD PRN PRN Reason: SALINE FLUSH Last Admin: 02/19/20 14:58 Dose: 10 ml Documented by: Medical Necessity - Tobacco Use Smoking Status: Former smoker Tobacco Use: Cigarettes Assessment/Plan #1 chronic atrial fibrillation-patient states that she has taken Coumadin for the past 2 years, her rate appears to be controlled, her EKG showed what appeared to be either atrial fibrillation or atrial flutter at a 5-1 rate. Patient's INR currently is 1.7 and she is off warfarin. #2 essential hypertension #3 chronic anxiety #4 acute calculus cholecystitis-pending clearance from cardiology, patient will have surgery probably tomorrow. Inpatient E&M: 46192 Subs Hosp L2
--- NOTE | 2020-02-19 17:02 | PCM.CONS.C ---
Reason for Consult Date of Consultation: 02/19/20 Reason for Consultation: Preoperative cardiovascular evaluation History of Present Illness: The patient is a 64 year old F [admitted to the hospital with right upper quadrant pain. She is felt to have cholecystitis and is scheduled for lap cholecystectomy. Patient has history of atrial fibrillation, hypertension. She is status post pacemaker placement for what appears to be tachybradycardia syndrome. She denies any chest pain, shortness of breath etc. She does have some back issues which limit her exercise capacity. However she easily has greater than 4 METS of functional capacity. She had a 2D echo in November of this year which was unremarkable. She had an EKG which reveals a flutter with controlled ventricular response and nonspecific T wave changes in the inferior leads. Review of systems: All systems reviewed. All else is negative except that in the HPI] Past Medical History Allergies/Adverse Reactions: Allergies No Known Allergies Allergy (Verified 02/17/20 09:46) Home Medications: Ambulatory Orders Medication Instructions Recorded Acetaminophen [Tylenol Extra 1,000 mg PO Q8H PRN PRN 02/17/20 Strength] Alprazolam [Xanax] 0.25 mg PO QHS PRN 02/17/20 Calcium Carbonate/Vitamin D3 1 ea PO DAILY 02/17/20 [Calcium 250+D Tablet] Calcium Carbonate/Vitamin D3 1 tab PO DAILY 02/17/20 [Calcium 500-Vit D3 600 Caplet] Ergocalciferol [Vitamin D] 50,000 unit PO WE 02/17/20 Lisinopril [Prinivil] 10 mg PO QHS 02/17/20 Metoprolol Tartrate 25 mg PO BID 02/17/20 Vitamin B Complex [B Complex] 1 ea PO QHS 02/17/20 Warfarin [Coumadin ([facility])] 3 mg PO WESA 02/17/20 Warfarin [Coumadin ([facility])] 6 mg PO SUMOTUTHFR 02/17/20 Past Medical History (Chronic Problems): Chronic Problems Status post placement of cardiac pacemaker (Chronic) Chronic atrial fibrillation (Chronic) Depression (Chronic) Benign essential HTN (Chronic) Surgical History: hysterectomy, tonsillectomy, - - Spinal fusion. 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: No pertinent MENTAL HEALTH CASE MANAGER history - *Family History Maternal History Items: No pertinent history Paternal History Items: No pertinent history Lives: Spouse/ Significant Other Smoking Status: Former smoker Tobacco Use: Cigarettes Alcohol: None Drugs: None Objective: Vital Signs Temp Pulse Resp BP Pulse Ox 97.9 F 61 14 160/71 H 100 02/19/20 14:48 02/19/20 14:48 02/19/20 14:48 02/19/20 14:48 02/19/20 14:48 Oxygen Delivery Method Room Air Weight: 138 lb 1.6 oz Body Mass Index (BMI) 25.2 Intake and Output for Last 24 Hours 02/17/20 02/18/20 02/19/20 23:59 23:59 23:59 Intake Total 2732.5 / 2732.5 3168.75 / 3168.75 1391.25 / 1391.25 Output Total 400 / 400 Balance 2332.5 / 2332.5 3168.75 / 3168.75 1391.25 / 1391.25 General: Awake, Alert, Oriented x 3 HEENT: Atraumatic Oral: Moist Mucosa Neck: Supple Lungs: Clear to auscultation Cardiovascular: Regular Rhythm Extremities: No edema Skin: No Rashes Psych/Mental Status: Appropriate 02/19/20 05:20: PT 19.5 H, INR 1.7 Rhythm: EKG: ECHO: Stress Test: Cardiac Cath: PCI: CT Surgery: Holter monitor: EPS: PPM: CXR: Chest CT Scan: Assessment/Plan 1. Preoperative cardiovascular evaluation: Patient does not need any further preoperative cardiac testing prior to lap cholecystectomy. She is at low risk for perioperative cardiac complications. 2. Atrial flutter: Rate controlled. Stable from the standpoint. Continue present management. Resume anticoagulation when okay with the surgeon.
--- NOTE | 2020-02-19 18:08 | PCM.PN.BLA ---
Progress Note Surgery cancelled, anesthesia requested cardiology consultation. Will attempt to reschedule for tomorrow. STROKE Vital Signs/Narrative: Vital Signs Temp Pulse Resp BP Pulse Ox 02/19/20 14:48 97.9 F 61 14 160/71 H 100
[2020-02-19 19:58] VITALS: BP 153/66; PULSE 63; RESP 18; TEMP 36.6; O2SAT 98
[2020-02-19 21:38] VITALS: PULSE 76
[2020-02-19] MEDS: Lisinopril 10 MG Tablet PO (21:38)
[2020-02-19] MEDS: ALPRAZolam 0.25 MG Tablet PO (21:42)
[2020-02-20] VITALS (14 sets, daily range): BP systolic 133–167; BP diastolic 57–92; PULSE 60–87; RESP 16–18; TEMP 36.4–37; O2SAT 92–100; BMI 25.3
[2020-02-20] MEDS: Morphine 2 MG/ML Syringe IV ×6 (01:56→11:54)
[2020-02-20] MEDS: 0.9% Saline Lock 10 ML Syringe IV ×3 (01:56→06:07)
[2020-02-20 06:47] LABS: International Normalized Ratio 1.3; Prothrombin Time (Protime)PT. 15.4 SECONDS (11.7-14.9)
[2020-02-20] MEDS: 0.9% Normal Saline 1,000 ML 75 ML IV ×2 (11:27→16:19)
[2020-02-20] MEDS: Metoprolol Tartrate 25 MG Tablet PO ×2 (11:31→21:01)
--- NOTE | 2020-02-20 13:00 | GALL_PTH ---
PATIENT: JETHRO NGUYEN LOC: MS3 U#:[id number] AGE/SX: 64/F ROOM: KS321 RE02/18/[address]: Dr. Byron Ambrose DO : 1955 BED: 1 DIS: 02/21/2020 SPEC #: [id number] RECD: 02/20/20 15:26 STATUS: NIGHAT REDora #: [id number] LISA: 02/20/20 13:[address]: Tiana Esteban DEPT: SURGICAL PATHOLOGY RECD BY: Jane Sandoval ENTERED: 02/21/20 08:11 SP TYPE: DIONE BOWMAN DR: MD Dr. Byron Singleton MD Dr. Mark Tereletsky, DO Dr. Paul Moodispaw, MD Tissues: Gallbladder, NOS Procedures: Surgery Specimen Level III HEADER OPERATION: Laparoscopic cholecystectomy with IOC PRE-OP DIAGNOSIS: Right upper quadrant pain, cholelithiasis TISSUE SUBMITTED: Gallbladder MICROSCOPIC DIAGNOSIS Gallbladder, cholecystectomy: Chronic cholecystitis, cholelithiasis and cholesterolosis. SAMMY:adriana 02/24/20 MICROSCOPIC DESCRIPTION Slides are reviewed. GROSS DESCRIPTION Received is one container labeled with the patient's name and designated gallbladder. The specimen consists of a gallbladder measuring 8 cm in length and up to 2.5 cm in diameter. The external surface is pink-simmons, smooth and glistening for the most part. Focally it is granular, hemorrhagic and contains cautery artifact. The gallbladder contains green bile and multiple greenish-yellow stones and stone fragments measuring in aggregate 2 x 1.5 x 0.9 cm and 0.1 to 1 cm in greatest dimension. The mucosa is bile-stained and without any mass lesions. The gallbladder wall measures up to 0.3 cm in thickness. The mucosa also shows several yellowish streaks consistent with cholesterolosis. Geographical Historian sections from the gallbladder and the cystic duct are submitted in one cassette. / SAMMY:adriana 02/21/20 TC:3 CPT: 64312
[2020-02-20] MEDS: Bupiv/Epi 0.25% 30 ML Vial (13:13)
--- NOTE | 2020-02-20 13:15 | RAD_ITS ---
STUDY: INTRAOPERATIVE CHOLANGIOGRAM. REASON FOR EXAM: Female, 64 years old. CHOLANGIOGRAM. Cholelithiasis. Positive sonographic Sharif''s sign. FLUOROSCOPY TIME (if supplied): ( 4.3 seconds ) minutes/seconds TECHNIQUE: An intraoperative Cholangiogram was performed by the surgeon. A single image was submitted for interpretation. COMPARISON: None. FINDINGS: The visualized common bile duct is unremarkable. No intraluminal filling defect is seen. There is free flow of contrast into the duodenum. RAD/Cholangiogram/ O R,Initial IMPRESSION: Unremarkable intraoperative cholangiogram. Electronically Signed: Joshua Zhang, at 15:16 EDT , Service support ,
--- NOTE | 2020-02-20 14:19 | PCM.OPRPT ---
Report of Operation Date of Procedure: 02/20/20 Pre-Operative Diagnosis: RUQ abdominal pain, abnormal radiological study of gallbladder Post-Operative Diagnosis: chronic cholecystitis, adhesions of lower abdomen Surgery/Procedure Performed:: laparoscopic cholecystectomy with cholangiograms Description of Surgical Findings:: normal IOC, cholecystitis with adhesions, adhesions from previous pelvic surgery business control manager: Marcin Smith Type of Anesthesia:: Epidural Anesthesiologist: Quentin Chen Specimen's removed: gallbladder and contents Estimated Blood Loss (mL): < 5 ml Fluids Replaced: 600 ml RL Description of Procedure: After informed consent was given, the patient was brought to the Operating Room. Appropriate time out protocol was followed. The patient was placed in the supine position. The patient was then placed under general endotracheal anesthesia by the anesthesia provider. The abdomen was then prepped with a sterile surgical skin preparation and sterile surgical drapes were placed. The infraumbilical skin fold was grasped with penetrating clamps and the skin and subcutaneous tissues were infiltrated with 0.25% marcaine with epinephrine. A skin incision was then made with a 15 blade scalpel. The anterior abdominal wall was elevated and a Veress needle was carefully inserted into the intraabdominal cavity. It was checked to be in the proper position with a normal saline drop test. A CO2 pneumoperitoneum was then created. Once this was achieved, then the Veress needle was removed and an 11mm trocar was placed in its stead. A 10mm laparoscope was then inserted into the trocar and careful attention was directed to the intraabdominal contents. There was no evidence of injury to any intraabdominal organs from insertion of the Veress needle or the trocar. There were adhesions of the omentum to the anterior surface of the abdominal wall from the patient's previous gynecological surgery. Under direct visualization, a 5mm subxiphoid trocar and two lateral 5mm right subcostal trocars were placed. The skin and subcutaneous tissues at these sites were infiltrated with 0.25% marcaine with epinephrine prior to placement of these trocars. Attention was then directed to the right upper quadrant of the abdomen. Graspers were placed in the lateral trocars to grasp the distal aspect of the gallbladder and direct it cephalad and to grasp the gallbladder at Fuentes?s pouch and direct it laterally. Dissection then began on the proximal gallbladder continuing down to the area of the triangle of Calot to bluntly dissect out the cystic duct. The neck of the gallbladder was identified and blunt dissection continued to dissect out a segment of the cystic duct. A clip was then placed on the neck of the gallbladder. A small ductotomy was then made. A Ranfac catheter was brought in through a separate skin incision and placed into the cystic duct. An intraoperative cholangiogram was performed under fluoroscopy. The xray revealed no lesions in the common bile duct and good flow into the duodenum. The Ranfac catheter was then removed and two clips were placed proximal to the ductotomy and the cystic duct was then transected. The cystic artery was visualized and bluntly isolated and then two clips were placed proximally and one clip distally and then it was transected between the proximal and distal clips. The gallbladder was then from the liver bed using electrocautery. Once from the liver bed, it was brought out via the umbilical port in an Endobag. It was then forwarded to pathology for analysis. The liver bed was carefully examined. There was no evidence of bile leakage or bleeding. The cystic duct stump and cystic artery stump had their clips intact and there was no evidence of bile leakage or bleeding. The remainder of the abdomen was grossly normal. The CO2 was released and all trocars removed intact. The periumbilical fascia was approximated with a [id number] 0 vicryl suture. All skin incision were closed with 4-0 monocryl in a subdermal fashion. Cavilol and Steristrips were used to reinforce the skin closure. Sterile dressings were applied to all wounds. Sponge, needle and instrument count was verified and correct at time of skin closure. The patient was extubated and brought to the Recovery Room in stable condition.. - Complications none noted - Admit VTE Documentation VTE Present on Admission: Yes VTE Mechan Device Prophylaxis: SCD's
--- NOTE | 2020-02-20 17:21 | PN_ITS ---
Subjective: Patient was seen and examined today, she returned from surgery this afternoon and is in no distress, is in the room during the time of my exam. - Physical Exam Vitals/I&O's: Vital Signs Temp Pulse Resp BP Pulse Ox 98.1 F 79 16 133/65 H 98 02/20/20 16:09 02/20/20 16:09 02/20/20 16:09 02/20/20 16:09 02/20/20 16:09 Oxygen Flow Rate (L/min) 2 Oxygen Delivery Method Nasal Cannula Weight: 62.641 kg Body Mass Index (BMI) 25.2 Intake and Output for Last 24 Hours 02/18/20 02/19/20 02/20/20 23:59 23:59 23:59 Intake Total 3168.75 / 3168.75 2286.25 / 2606.25 2420 / 2420 Output Total 400 / 400 Balance 3168.75 / 3168.75 2286.25 / 2606.25 2019 General: Alert, No apparent distress, Well developed, Well nourished HEENT: Atraumatic, PERRLA, EOMI, Normocephalic Oral: Moist Mucosa Neck: Supple, No JVD, Trachea Midline, Thyroid Normal Size and Texture Lungs: Clear to auscultation, Normal air movement, No rhonchi, No wheeze Cardiovascular: No murmurs, PMI Normal, Irregular Rate, No rub noted, No Gallop Extremities: No clubbing, No cyanosis, No edema, Capillary Refill Less than 3 Seconds Skin: No rashes, No breakdown Musculoskeletal: No Tenderness to Palpation of Joints or Extremities Neurological: Cranial nerves II-XII grossly intact, Neuro grossly intact, Sensory exam intact to light touch and pain Psych/Mental Status: Normal Affect, Appropriate Laboratory Results 02/20/20 06:20: PT 15.4 H, INR 1.3 Current Medications Acetaminophen (Acetaminophen 325 Mg Tablet) 650 mg PO Q4H PRN PRN PRN Reason: Pain Score 1-10 Last Admin: 02/19/20 14:55 Dose: 650 mg Documented by: Hydrocodone Bitart/Acetaminophen (Hydrocodone Bitartrate/Apap 5/325 Tablet) 1 tablet PO Q4H PRN PRN PRN Reason: Pain Score 4-10 Alprazolam (Xanax) 0.25 mg PO QHS PRN PRN Reason: ANXIETY Last Admin: 02/19/20 21:42 Dose: 0.25 mg Documented by: Docusate Sodium (Docusate Sodium 100 Mg Capsule) 100 mg PO BID PRN PRN Reason: Constipation Last Admin: 02/18/20 22:17 Dose: 100 mg Documented by: Sodium Chloride () 1,000 mls @ 75 mls/hr IV .[id number] [facility] Last Admin: 02/20/20 16:19 Dose: 75 mls/hr Documented by: Cefotetan Disodium 1 gm/ (Sodium Chloride) 50 mls @ 100 mls/hr IV Q12 [facility] Last Infusion: 02/20/20 11:58 Dose: Infused Documented by: Lisinopril (Zestril) 10 mg PO QHS [facility] Last Admin: 02/19/20 21:38 Dose: 10 mg Documented by: Metoprolol Tartrate (Lopressor (Beta Scott)) 25 mg PO BID [facility] Last Admin: 02/20/20 11:31 Dose: 25 mg Documented by: Morphine Sulfate () 2 mg IV Q1H PRN PRN PRN Reason: Pain Score 6-10 Last Admin: 02/20/20 11:54 Dose: 2 mg Documented by: Ondansetron HCl (Zofran) 4 mg IV Q8H PRN PRN PRN Reason: NAUSEA/VOMITING Sodium Chloride () 10 - 40 ml IV UD PRN PRN Reason: SALINE FLUSH Last Admin: 02/20/20 06:07 Dose: 10 ml Documented by: Medical Necessity - Tobacco Use Smoking Status: Former smoker Tobacco Use: Cigarettes Assessment/Plan #1 chronic atrial fibrillation-continue to hold Coumadin at this time, patient remained stable #2 essential hypertension #3 chronic anxiety #4 acute calculus cholecystitis-status post lap anju postop day 0 Inpatient E&M: [id number] [facility] Hosp L2
[2020-02-20] MEDS: Acetaminophen 325 MG Tablet 650 MG PO (21:00)
[2020-02-20] MEDS: Lisinopril 10 MG Tablet PO (21:01)
[2020-02-20] MEDS: ALPRAZolam 0.25 MG Tablet PO (21:07)
[2020-02-21 00:09] VITALS: BMI 25.3
[2020-02-21 00:15] VITALS: BP 143/74; PULSE 83; RESP 18; TEMP 36.7; O2SAT 95
[2020-02-21] MEDS: HYDROcodone Bitartrate/Apap 5/325 Tablet PO ×3 (00:35→12:53)
[2020-02-21] MEDS: Acetaminophen 325 MG Tablet 650 MG PO ×3 (02:08→10:20)
[2020-02-21 04:09] VITALS: BMI 25.3
[2020-02-21 04:42] VITALS: BP 145/75; PULSE 81; RESP 18; TEMP 36.8; O2SAT 95
[2020-02-21] MEDS: 0.9% Normal Saline 1,000 ML 75 ML IV (06:10)
--- NOTE | 2020-02-21 07:22 | PN.SURG_ITS ---
Subjective: Patient is doing well, POD#1 s/p laparoscopic cholecystectomy tolerating liquids, passing flatus, has urinated, denies chest pain abdominal pain tolerable with pain medications - Physical Exam Vitals/I&O's: Vital Signs Temp Pulse Resp BP Pulse Ox 98.3 F 81 18 145/75 H 95 02/21/20 04:42 02/21/20 04:42 02/21/20 04:42 02/21/20 04:42 02/21/20 04:42 Oxygen Flow Rate (L/min) 2 Oxygen Delivery Method Room Air Weight: 62.641 kg Body Mass Index (BMI) 25.2 Intake and Output for Last 24 Hours 02/19/20 02/20/20 02/21/20 23:59 23:59 23:59 Intake Total 2286.25 / 2606.25 3822.5 / 3822.5 907.5 / 907.5 Output Total 400 / 400 Balance 2286.25 / 2606.25 3422.5 / 3422.5 907.5 / 907.5 General: Alert, Oriented x3 Oral: Moist Mucosa Neck: Supple Lungs: Normal air movement Abdomen: Bowel Sounds Present, Soft, - - dressings intact, minimal seepage Current Medications Acetaminophen (Acetaminophen 325 Mg Tablet) 650 mg PO Q4H PRN PRN PRN Reason: Pain Score 1-10 Last Admin: 02/21/20 06:11 Dose: 650 mg Documented by: Hydrocodone Bitart/Acetaminophen (Hydrocodone Bitartrate/Apap 5/325 Tablet) 1 tablet PO Q4H PRN PRN PRN Reason: Pain Score 4-10 Last Admin: 02/21/20 04:43 Dose: 1 tablet Documented by: Alprazolam (Xanax) 0.25 mg PO QHS PRN PRN Reason: ANXIETY Last Admin: 02/20/20 21:07 Dose: 0.25 mg Documented by: Docusate Sodium (Docusate Sodium 100 Mg Capsule) 100 mg PO BID PRN PRN Reason: Constipation Last Admin: 02/18/20 22:17 Dose: 100 mg Documented by: Sodium Chloride () 1,000 mls @ 75 mls/hr IV .[id number] Last Admin: 02/21/20 06:10 Dose: 75 mls/hr Documented by: Cefotetan Disodium 1 gm/ (Sodium Chloride) 50 mls @ 100 mls/hr IV Q12 [facility] Last Infusion: 02/20/20 21:31 Dose: Infused Documented by: Lisinopril (Zestril) 10 mg PO QHS [facility] Last Admin: 02/20/20 21:01 Dose: 10 mg Documented by: Metoprolol Tartrate (Lopressor (Beta Scott)) 25 mg PO BID [facility] Last Admin: 02/20/20 21:01 Dose: 25 mg Documented by: Morphine Sulfate () 2 mg IV Q1H PRN PRN PRN Reason: Pain Score 6-10 Last Admin: 02/20/20 11:54 Dose: 2 mg Documented by: Ondansetron HCl (Zofran) 4 mg IV Q8H PRN PRN PRN Reason: NAUSEA/VOMITING Sodium Chloride () 10 - 40 ml IV UD PRN PRN Reason: SALINE FLUSH Last Admin: 02/20/20 06:07 Dose: 10 ml Documented by: Medical Necessity - Tobacco Use Smoking Status: Former smoker Tobacco Use: Cigarettes Assessment/Plan Impression: POD#1 s/p laparoscopic cholecystectomy Plan: discharge to home
[2020-02-21 07:33] VITALS: PULSE 60; BMI 25.3
[2020-02-21 10:15] VITALS: BP 154/56; PULSE 65
[2020-02-21] MEDS: Metoprolol Tartrate 25 MG Tablet PO (10:15)
--- NOTE | 2020-02-21 11:27 | CASEMGMT ---
Pt confirms she has both a LW and HCPOA. Pt made aware documents are not on file and requested they be brought in. Pt is understanding. ROHAN Nichols
[2020-02-21 12:55] VITALS: BMI 25.3
--- NOTE | 2020-02-21 13:23 | DCINST_ITS ---
- Discharge Diagnoses Current Active Problems: Current Active and Chronic Problems Status post placement of cardiac pacemaker (Chronic) Chronic atrial fibrillation (Chronic) You will use the following diet at home:: No restrictions Your food should be the consistency of: Regular Your liquids should be the consistency of: Regular/Thin Discharge Activity: Return to Normal Activity Weight Bearing Status: Full weight bearing Call your doctor if your incision/area has: Continuous Slow Oozing, Sudden Increased Bleeding, Increased Pain/ Swelling, Increased Redness, Foul Smelling Discharge, Swelling at the incision site Call your doctor if you observe: Fever of 101 or Higher Additional Instructions: GET INR CHECKED 02/24/20 Allergies/Adverse Reactions: Allergies No Known Allergies Allergy (Verified 02/17/20 09:46) Medications to take at Discharge Acetaminophen [Tylenol] 1,000 mg PO Q8H PRN PRN 02/17/20 Alprazolam [Xanax] 0.25 mg PO QHS PRN 02/17/20 Calcium Carbonate/Vitamin D3 [Calcium 250-D Tablet] 1 ea PO DAILY 02/17/20 Calcium Carbonate/Vitamin D3 [Calcium 500-Vit D3 600 Caplet] 1 tab PO DAILY 02/17/20 Ergocalciferol [Vitamin D] 50,000 unit PO WE 02/17/20 Lisinopril [Prinivil] 10 mg PO QHS 02/17/20 Metoprolol Tartrate 25 mg PO BID 02/17/20 Vitamin B Complex [B Complex] 1 ea PO QHS 02/17/20 Warfarin [Coumadin] 3 mg PO WESA 02/17/20 Warfarin [Coumadin] 6 mg PO SUMOTUTHFR 02/17/20 Acetaminophen [Tylenol Tablet] 650 mg PO Q4H PRN PRN tab 02/21/20 Hydrocodone Bitart/Apap 5-325 [[place] 5MG-325MG] 1 tab PO Q4H PRN PRN 5 Days #15 tab 02/21/20 The following prescriptions were given: Hydrocodone Bitart/Apap 5-325 [[place] 5MG-325MG] 1 tab PO Q4H PRN PRN 5 Days #15 tab PRN Reason: Pain Score 4-10 Transmission Status: Received by [id number] Primary Care Physician: Byron Shaw MD [Primary Care Provider] - Please follow up with your Primary Care Physician in: NEXT MONDAY-GET INR CHECKED Test Results: Test results from this visit will be discussed in further detail at your follow- up appointment, if applicable. Please Follow Up With: Tiana Esteban MD When: one week-call for appointment
--- NOTE | 2020-02-21 14:18 | DCINST_ITS ---
Discharge Diet: No Restrictions Discharge Activity: Return to Normal Activity, May not drive while taking narcotic pain medications. Weight Bearing Status: Full weight bearing Call your doctor if your incision/area has: Continuous Slow Oozing, Foul Smelling Discharge Call your doctor if you observe: Fever of 101 or Higher Additional Instructions: Recommended pain control regimen - May take 600 mg ibuprofen (Motrin) and then in 3-4 hours, may take 650 mg acetaminophen (Tylenol), then in 3-4 hours may take 600 mg ibuprofen, then in 3- 4 hours may take 650 mg acetaminophen and so on for 2-3 days May take narcotic pain medication for pain that is not controlled by above and at night for comfort through the night Leave dressings in place May get dressings wet in shower - do not scrub in the area and pat dry Do not soak - no tub baths/swimming If dressing appears to be soiled/open at one end/no longer sealed - may remove dressing but leave site uncovered (do not replace with any type of dressing) - leave steristrips in place - may get wet but do not scrub in the area and pat dry Allergies/Adverse Reactions: Allergies No Known Allergies Allergy (Verified 02/17/20 09:46) Medications to take at Discharge Acetaminophen [Tylenol] 1,000 mg PO Q8H PRN PRN 02/17/20 Alprazolam [Xanax] 0.25 mg PO QHS PRN 02/17/20 Calcium Carbonate/Vitamin D3 [Calcium 250-D Tablet] 1 ea PO DAILY 02/17/20 Calcium Carbonate/Vitamin D3 [Calcium 500-Vit D3 600 Caplet] 1 tab PO DAILY 02/17/20 Ergocalciferol [Vitamin D] 50,000 unit PO WE 02/17/20 Lisinopril [Prinivil] 10 mg PO QHS 02/17/20 Metoprolol Tartrate 25 mg PO BID 02/17/20 Vitamin B Complex [B Complex] 1 ea PO QHS 02/17/20 Warfarin [Coumadin] 3 mg PO WESA 02/17/20 Warfarin [Coumadin] 6 mg PO SUMOTUTHFR 02/17/20 Acetaminophen [Tylenol Tablet] 650 mg PO Q4H PRN PRN tab 02/21/20 Hydrocodone Bitart/Apap 5-325 [[place] 5MG-325MG] 1 tab PO Q4H PRN PRN 5 Days #15 tab 02/21/20 The following prescriptions were given: Hydrocodone Bitart/Apap 5-325 [[place] 5MG-325MG] 1 tab PO Q4H PRN PRN 5 Days #15 tab PRN Reason: Pain Score 4-10 Transmission Status: Received by [id number] Primary Care Physician: Byron Shaw MD [Primary Care Provider] - Please follow up with your Primary Care Physician in: NEXT MONDAY-GET INR [place]I[facility] CKED Test Results: Test results from this visit will be discussed in further detail at your follow- up appointment, if applicable. Please Follow Up With: Tiana Esteban MD - call When: to be seen in 7-10 days, please call for date and time, thank you
--- NOTE | 2020-02-21 14:22 | DS.PCM_ITS ---
Discharge Summary Date of Admission: 02/17/20 Date of Discharge: 02/21/20 Summary: 64 y/o WF with cholelithiasis and intractable RUQ abdominal pain, anticoagulated on coumadin. Admitted to hospital for intractable pain. Awaiting normalization of INR with vitamin K. Initially scheduled for surgery on 02/19/16. Postponed, anesthesia requested cardiology consultation for EKG changes. - Physical Exam Vitals/I&O's: Vital Signs Temp Pulse Resp BP Pulse Ox 98.3 F 65 18 154/56 H 95 02/21/20 04:42 02/21/20 10:15 02/21/20 04:42 02/21/20 10:15 02/21/20 04:42 Oxygen Flow Rate (L/min) 2 Oxygen Delivery Method Room Air Weight: 62.641 kg Body Mass Index (BMI) 25.2 Intake and Output for Last 24 Hours 02/19/20 02/20/20 02/21/20 23:59 23:59 23:59 Intake Total 2286.25 / 2606.25 3822.5 / 3822.5 957.5 / 957.5 Output Total 400 / 400 Balance 2286.25 / 2606.25 3422.5 / 3422.5 957.5 / 957.5 Current Medications Acetaminophen (Acetaminophen 325 Mg Tablet) 650 mg PO Q4H PRN PRN PRN Reason: Pain Score 1-10 Last Admin: 02/21/20 10:20 Dose: 650 mg Documented by: Hydrocodone Bitart/Acetaminophen (Hydrocodone Bitartrate/Apap 5/325 Tablet) 1 tablet PO Q4H PRN PRN PRN Reason: Pain Score 4-10 Last Admin: 02/21/20 12:53 Dose: 1 tablet Documented by: Alprazolam (Xanax) 0.25 mg PO QHS PRN PRN Reason: ANXIETY Last Admin: 02/20/20 21:07 Dose: 0.25 mg Documented by: Docusate Sodium (Docusate Sodium 100 Mg Capsule) 100 mg PO BID PRN PRN Reason: Constipation Last Admin: 02/18/20 22:17 Dose: 100 mg Documented by: Sodium Chloride () 1,000 mls @ 75 mls/hr IV .[id number] Last Admin: 02/21/20 06:10 Dose: 75 mls/hr Documented by: Cefotetan Disodium 1 gm/ (Sodium Chloride) 50 mls @ 100 mls/hr IV Q12 [facility] Last Infusion: 02/21/20 10:45 Dose: Infused Documented by: Lisinopril (Zestril) 10 mg PO QHS [facility] Last Admin: 02/20/20 21:01 Dose: 10 mg Documented by: Metoprolol Tartrate (Lopressor (Beta Scott)) 25 mg PO BID [facility] Last Admin: 02/21/20 10:15 Dose: 25 mg Documented by: Morphine Sulfate () 2 mg IV Q1H PRN PRN PRN Reason: Pain Score 6-10 Last Admin: 02/20/20 11:54 Dose: 2 mg Documented by: Ondansetron HCl (Zofran) 4 mg IV Q8H PRN PRN PRN Reason: NAUSEA/VOMITING Sodium Chloride () 10 - 40 ml IV UD PRN PRN Reason: SALINE FLUSH Last Admin: 02/20/20 06:07 Dose: 10 ml Documented by: Warfarin Sodium (Warfarin 5 Mg Tablet) 10 mg PO X1 ONE Stop: 02/21/20 17:01 Last Admin: 02/21/20 14:14 Dose: 10 mg Documented by:
--- NOTE | 2020-02-21 17:29 | PN_ITS ---
Subjective: Patient was seen and examined today, she is being discharged by general surgery, I briefly discussed changing her anticoagulation to one of the newer agents, I contacted her pharmacy and unfortunately it would be too expensive at almost $400 a month. - Physical Exam Vitals/I&O's: Vital Signs Temp Pulse Resp BP Pulse Ox 98.3 F 65 18 154/56 H 95 02/21/20 04:42 02/21/20 10:15 02/21/20 04:42 02/21/20 10:15 02/21/20 04:42 Oxygen Flow Rate (L/min) 2 Oxygen Delivery Method Room Air Weight: 62.641 kg Body Mass Index (BMI) 25.2 Intake and Output for Last 24 Hours 02/19/20 02/20/20 02/21/20 23:59 23:59 23:59 Intake Total 2286.25 / 2606.25 3822.5 / 3822.5 1545.0 / 1545.0 Output Total 400 / 400 Balance 2286.25 / 2606.25 3422.5 / 3422.5 1545.0 / 1545.0 General: Alert, Oriented x3, Cooperative, No apparent distress, Well developed, Well nourished HEENT: Atraumatic, PERRLA, EOMI, Normocephalic Oral: Moist Mucosa Neck: Supple, No JVD, Trachea Midline, Thyroid Normal Size and Texture Lungs: Clear to auscultation, Normal air movement, No rhonchi, No wheeze, No rales Cardiovascular: PMI Normal, Irregular Rate, No rub noted, No Gallop Extremities: No clubbing, No cyanosis, No edema, Capillary Refill Less than 3 Seconds Skin: No rashes, No breakdown Musculoskeletal: No Tenderness to Palpation of Joints or Extremities Neurological: Cranial nerves II-XII grossly intact, Neuro grossly intact, Sensor y exam intact to light touch and pain, Coordination normal Psych/Mental Status: Normal Affect, Appropriate, Alert and oriented to time, place, person, mood and affect Medical Necessity - Tobacco Use Smoking Status: Former smoker Tobacco Use: Cigarettes Assessment/Plan #1 chronic atrial fibrillation-patient was given warfarin 10 mg p.o. today and she will start with her evening dose of warfarin tonight, she has been instructed to follow-up with her PCP on Monday to get an INR checked. #2 essential hypertension #3 chronic anxiety #4 acute calculus cholecystitis Inpatient E&M: [id number] Subs Hosp L2
== END 2020-02-21 14:35 | disposition home or self-care (01) | DRG 418 ==
LOC: ED 10:57 → MS3 14:24
PROVIDERS: Anesthesiology; Admitting Provider Surgery; Emergency Provider Student in an Organized Health Care Education/Training Program; PCP Family Medicine; Visit Provider Internal Medicine
PROC: (CPT 47610; principal; 2020-02-19 14:10)
PROC: 0FT44ZZ Resection of Gallbladder, Percutaneous Endoscopic Approach (ICD-10-PCS; CPT 47610; principal; 2020-02-20 12:40)
DX: K80.12 Calculus of gallbladder with acute and chronic cholecystitis without obstruction (principal); I48.92 Unspecified atrial flutter; K66.0 Peritoneal adhesions (postprocedural) (postinfection); I10 Essential (primary) hypertension; R79.1 Abnormal coagulation profile; Z79.01 Long term (current) use of anticoagulants; Z95.0 Presence of cardiac pacemaker; I48.0 Paroxysmal atrial fibrillation; E78.5 Hyperlipidemia, unspecified; Z79.899 Other long term (current) drug therapy; Z87.891 Personal history of nicotine dependence; F41.9 Anxiety disorder, unspecified
CPT/HCPCS: 36415; 71046; 74300; 76000; 76705; 80053; 81001; 83036; 83690; 85025; 85610; 88304; 93005; 99283; 99285; J7030; A4216; J2405

== ENCOUNTER 2021-08-13 00:11 | Inpatient (IN) | payer MEDICARE, OTHER, SELFPAY ==
[2021-08-13] VITALS (17 sets, daily range): BP systolic 89–155; BP diastolic 50–83; PULSE 49–73; RESP 15–18; TEMP 36.1–36.8; O2SAT 95–100; BMI 22.2; BMI 25.3
--- NOTE | 2021-08-13 00:19 | EKG12_ITS ---
Test Reason : BRADYCARDIA Blood Pressure : / mmHG Vent. Rate : 053 BPM Atrial Rate : 053 BPM P-R Int : 244 ms QRS Dur : 096 ms QT Int : 484 ms P-R-T Axes : 063 066 025 degrees QTc Int : 454 ms Sinus bradycardia with sinus arrhythmia with 1st degree A-V block with occasional AV-Dual paced compl exes Abnormal ECG Confirmed by ANGELA BOLTON, KANA ([id number]), web editor MARY WOLF ([id number]) on 08/19/2021 1:21:19 PM Referred By: Confirmed By:KANA MILLER MD
[2021-08-13 00:28] LABS: Absolute Lymphocyte Count 5.63 X10^3/uL (0.83-4.51); Absolute Neutrophil Count 5.8 X10^3/uL (2.0-7.7); Basophil# 0.04 X10^3/uL; Basophil% 0.3 % (0-1); Eosinophil# 0.11 X10^3/uL; Eosinophils% 0.9 % (0-5); Hematocrit 39.2 % (37-47); Lymphocyte # 5.63 X10^3/ul (0.83-4.51); Lymphocyte % 45.7 % (19-41); Mean Corp Hgb Conc 33.2 g/dL (32-36); Mean Corpuscular Hgb 28.6 pg (27.0-32.0); Mean Corpuscular Volume 86.3 fL (81-99); Mean Platelet Vol. 9.8 fl (6.2-12.0); Monocyte# 0.73 X10^3/uL; Monocyte% 5.9 % (0-10); NRBC Flagged by Analyzer 0 % (0-5); Neutrophil # 5.77 X10^3/uL (2.7-7.7); Neutrophil % 46.8 % (47-70); POSITIVE DIFFERENTIAL YES; Platelet Count 244 K/mm3 (150-450); RBC Distribution Width CV 13.6 % (11.6-14.6); RBC Distribution Width SD 42.6 fl (35.1-43.9); Red Blood Count 4.54 M/mm3 (4.2-5.4); White Blood Count 12.3 K/mm3 (4.4-11.0)
--- NOTE | 2021-08-13 00:30 | RAD_ITS ---
STUDY: X-RAY CHEST REASON FOR EXAM: Female, 65 years old. chest pain TECHNIQUE: AP portable 12:24 AM. COMPARISON: 02/17/2020. FINDINGS: LUNGS: No consolidation. No pneumothorax. MEDIASTINUM: Unremarkable. CARDIAC SILHOUETTE: Not enlarged. Pacemaker device with no change in the position of the leads. BONES AND SOFT TISSUES: No acute abnormalities. Scoliosis. RAD/Chest 1 View (Portable) IMPRESSION: Negative portable chest x-ray. Electronically Signed: Sasha Hinojosa MD at 1:25 EDT ,
[2021-08-13 00:33] LABS: Differential Indicated SCAN CRITERIA MET
--- NOTE | 2021-08-13 00:36 | EX.ED.DYSGE1 ---
HPI History of Present Illness Chief Complaint: Nausea/Vomiting Informant: patient Narrative Narrative: Patient presents with nausea lightheadedness and shoulder discomfort. Patient states she was just sitting on the couch watching TV. She started to feel nauseated. She had discomfort across the top of her shoulders but not actual chest pain. She did get slightly diaphoretic. She felt as though she might pass out. She called her who called 911. They found that her heart rate was slow. She was given atropine as well as Zofran. She states now she feels really back to normal. Patient does have a history of abnormal heart rate. A pacemaker was placed about 2 years ago at [facility] but I do not know what rhythm she was in causing this. She states she has been found to be in atrial fibrillation for some time. She just had a cardioversion done 2 weeks ago. She is on Coumadin. She also states that her pacemaker is set at 50 for its low rate. She commonly has a lower heart rate. [facility] Medical History (Updated 08/13/21 @ 01:[address] Oneil Cunningham MD) Benign essential HTN Chronic atrial fibrillation Depression Diabetes Former tobacco use Scoliosis Tachy-lakia syndrome Home Medications acetaminophen 1,000 mg PO Q8H PRN PRN 02/17/20 [History Last Taken 02/17/20 08:00] alprazolam 0.25 mg PO QHS PRN 02/17/20 [History Last Taken 02/16/20] calcium carbonate-vitamin D3 1 ea PO DAILY 02/17/20 [History Last Taken Unknown] calcium carbonate-vitamin D3 1 tab PO DAILY 02/17/20 [History Last Taken 02/17/20] ergocalciferol (vitamin D2) 50,000 unit PO WE 02/17/20 [History Last Taken 02/12/20] lisinopril 10 mg PO QHS 02/17/20 [History Last Taken 02/16/20] metoprolol tartrate 25 mg PO BID 02/17/20 [History Last Taken 02/17/20 08:00] vitamin B complex 1 ea PO QHS 02/17/20 [History Last Taken 02/16/20] warfarin 3 mg PO WESA 02/17/20 [History Last Taken 02/15/20] warfarin 6 mg PO SUMOTUTHFR 10/12/20 [History Last Taken 02/17/20 08:00 6 mg] acetaminophen 650 mg PO Q4H PRN PRN tab 02/21/20 [Rx Last Taken Unknown] Allergy/AdvReac Type Severity Reaction Status Date / Time No Known Allergies Allergy Verified 08/13/21 00:19 Family History (Updated 08/13/21 @ 00:[address] Ashley Cramer MD) Mother Hypertension COPD (chronic obstructive pulmonary disease) Father Cancer Hx brain cancer. Surgical History (Updated 08/13/21 @ 00:[address] Ashley Cramer MD) H/O tubal ligation Hx of spinal fusion S/P appendectomy S/P cholecystectomy S/P hysterectomy Status post placement of cardiac pacemaker Status post tonsillectomy and adenoidectomy Social History (Updated 08/13/21 @ 00:[address] Ashley Cramer MD) household members: spouse Smoking Status: Former smoker how long ago did patient quit smoking: Quit 05/08/1974 alcohol intake: current alcohol intake frequency: a few times a month substance use type: does not use ROS ROS ED Constitutional Constitutional ED: Reports sweats; Denies chills or fever(s) Eyes Eyes: Denies blurry vision ENT ENT ED: Denies rhinorrhea Cardiovascular Cardiovascular: Reports chest pain Respiratory/Chest Respiratory/Chest: Denies cough or dyspnea Gastrointestinal Gastrointestinal: Reports nausea; Denies abdominal pain Genitourinary Genitourinary ED: Denies dysuria or hematuria Musculoskeletal Musculoskeletal: Reports other Details: Patient had discomfort across the top of her shoulders with the event but it is gone now. ; Denies back pain Integumentary Denies rash Neurologic Neurologic: Reports other Details: No focal weakness but she did have a generalized feeling of weakness and almost presyncope. ; Denies headache(s) Psychiatric Psychiatric: Denies anxiety or depression Endocrine Endocrinology: Reports other Details: Patient reports a history of diet-controlled diabetes ; Denies polydipsia or polyuria Allergic/Immunologic Allergic/Immunologic ED: Denies urticaria EXAM Physical Exam Const Vital Signs: 08/13/21 00:12 08/13/21 00:40 08/13/21 01:12 Temperature 97.6 F L Temperature Source Temporal Pulse Rate 54 L 50 L Respiratory Rate 15 15 Blood Pressure 102/57 L 89/50 L Blood Pressure Mean 72 63 Pulse Ox 96 100 99 Oxygen Delivery Method Room Air Room Air Room Air 08/13/21 01:34 Temperature Temperature Source Pulse Rate Respiratory Rate Blood Pressure 100/72 Blood Pressure Mean 81 Pulse Ox Oxygen Delivery Method Patient is not diaphoretic at this time Positive well nourished and well developed General Appearance ED: well developed; Negative for cyanotic HEENT Reports moist mucous membranes Eyes General Eye ED: Negative for pale conjunctiva or scleral icterus Neck no JVD Chest Wall inspection of chest normal Resp normal respiratory effort and clear to auscultation bilaterally Effort and Inspection: Negative for pain with movement Cardio regular rhythm Rate: bradycardia and other Other Details: Patient's heart rate runs about 50-60. She does have paced beats on the monitor intermittently although they do not show up on her EKG. she has a history of a valvular abnormality but I do not hear a murmur at this time. GI normal to inspection, nondistended, normoactive bowel sounds and non-tender Palpation: soft Back/Spine no CVA tenderness Extremity normal to inspection General Extremety ED: Negative for edema or tenderness General Extremity: Negative for edema Neuro oriented x3 Sensorium / Orientation: alert Psych mental status grossly normal Skin no rashes or lesions noted MDM MDM MDM Narrative Medical decision making narrative: Patient CBC shows minimal elevation of the white count at 12.3 which is nonspecific. INR is therapeutic at 2.5. Lactate is pending at this time. Electrolytes showed mild elevation of glucose at 170. She does report being a diet-controlled diabetic. Her BUN to creatinine ratio was a bit high at 32.7-1 but her overall creatinine and GFR is still preserved. Troponin is negative. Patient dropped blood pressure little bit here at 89. We are giving more fluids because she does have signs of dehydration. But her next blood pressure was in the low 100s without treatment. She is not having the shoulder discomfort now. She states she does not feel perfectly right but she is not nauseated or lightheaded now. She reports never having a heart catheterization despite Holter monitor pacer and cardioversion. I am concerned with her symptoms including near syncope. Her blood pressure is a little soft. Lactate is pending. EKG is intermittently paced and first-degree AV block. Her pacer base rate is evidently set at 50. With her symptoms, blood pressure, heart rate I think hospitalization is appropriate. We did discuss the case with hospitalist. Lab Data Attestation: I reviewed the patient's lab results. Labs: Laboratory Results - last 24 hr 08/13/21 08/13/21 08/13/21 00:22 00:22 00:22 WBC 12.3 H RBC 4.54 Hgb 13.0 Hct 39.2 MCV 86.3 MCH 28.6 MCHC 33.2 RDW Std Deviation 42.6 RDW Coeff of Del 13.6 Plt Count 244 MPV 9.8 Immature Gran % (Auto) 0.400 Neut % (Auto) 46.8 L Lymph % (Auto) 45.7 H [place] % (Auto) 5.9 Eos % (Auto) 0.9 Baso % (Auto) 0.3 Absolute Neuts (auto) 5.8 Absolute Lymphs (auto) 5.63 H Nucleated RBC % 0 PT 26.3 H INR 2.5 Sodium Cancelled Potassium Cancelled Chloride Cancelled Carbon Dioxide Cancelled Anion Gap Cancelled BUN Cancelled Creatinine Cancelled Estim Creat Clear Calc Cancelled Est GFR (MDRD) Af Amer Cancelled Est GFR (MDRD) Non-Af Cancelled BUN/Creatinine Ratio Cancelled Glucose Cancelled Calcium Cancelled Troponin I High Sens Cancelled 08/13/21 00:52 WBC RBC Hgb Hct MCV MCH MCHC RDW Std Deviation RDW Coeff of Del Plt Count MPV Immature Gran % (Auto) Neut % (Auto) Lymph % (Auto) [place] % (Auto) Eos % (Auto) Baso % (Auto) Absolute Neuts (auto) Absolute Lymphs (auto) Nucleated RBC % PT INR Sodium 143 Potassium 3.9 Chloride 110 H Carbon Dioxide 29.0 Anion Gap 4 L BUN 24 H Creatinine 0.73 Estim Creat Clear Calc 49.80 Est GFR (MDRD) Af Amer 102 Est GFR (MDRD) Non-Af 84 BUN/Creatinine Ratio 32.7 H Glucose 170 H Calcium 8.8 Troponin I High Sens 5 Radiography Diagnostic Testing: Clinical Impression(s) from Imaging Studies Chest X-Ray 08/13/21 00:30 IMPRESSION: Negative portable chest x-ray. Electronically Signed: Sasha Hinojosa MD at 1:25 EDT , EKG Initial EKG: Comments: EKG shows sinus rhythm with first-degree block and overall bradycardic rate at 53. No ventricular ectopy or paced beats are on this EKG. No acute ST elevation or depression consistent with infarct or ischemia. There are diffuse nonspecific ST and T wave changes. TN interval is long. However QRS duration and QTC are normal. Discharge Plan Triage Chief Complaint: Nausea/Vomiting ED Provider: Oneil Cunningham Dx/Rx/DC Orders Clinical Impression: Near syncope, Bradycardia, Dehydration, Low blood pressure Prescriptions: No Action warfarin 3 MG tablet 3 mg PO WESA RF: 0 alprazolam 0.25 MG tablet 0.25 mg PO QHS PRN (Reason: Sleep) RF: 0 warfarin 6 MG tablet 6 mg PO SUMOTUTHFR RF: 0 vitamin B complex 1 EACH tablet 1 ea PO QHS RF: 0 ergocalciferol (vitamin D2) 50,000 UNIT capsule 50,000 unit PO WE RF: 0 metoprolol tartrate 25 MG tablet 25 mg PO BID RF: 0 calcium carbonate-vitamin D3 1 EACH tablet 1 ea PO DAILY RF: 0 calcium carbonate-vitamin D3 1 EACH tablet 1 tab PO DAILY RF: 0 acetaminophen 500 MG tablet 1,000 mg PO Q8H PRN PRN (Reason: Pain Score 1-10) RF: 0 lisinopril 10 MG tablet 10 mg PO QHS RF: 0 acetaminophen 325 MG tablet 650 mg PO Q4H PRN PRN (Reason: Pain Score 1-10) RF: 0 Primary Care Provider: Byron Sears Referrals: Byron Sears DO [Primary Care Provider] - Disposition Disposition: Acute Care Hospital [facility]
[2021-08-13] MEDS: 0.9% Normal Saline 1,000 ML 1000 ML IV (00:39)
[2021-08-13] MEDS: Aspirin 81 MG TAB.CHEW 324 MG PO (00:39)
[2021-08-13 00:55] LABS: International Normalized Ratio 2.5; Prothrombin Time (Protime)PT. 26.3 SECONDS (11.7-14.9)
[2021-08-13 01:16] LABS: Anion Gap 4 (5-15); BUN 24 mg/dL (7-18); BUN/Creat Ratio 32.7 RATIO (10-20); Calcium,Total 8.8 mg/dL (8.5-10.1); Chloride 110 mmol/L (98-107); Creatinine, Serum 0.73 mg/dL (0.55-1.02); EST Glomerular Filtration Rate 84 mL/min (>60); Est Glom Filt Rate - Afr Amer 102 mL/min (>60); Glucose 170 mg/dL (74-106); Potassium 3.9 mmol/L (3.5-5.1); Sodium Level 143 mmol/L (136-145); Troponin-I HS (w/2H Reflex) 5 pg/mL (3.0-54.0)
[2021-08-13] MEDS: 0.9% Normal Saline 1,000 ML 999 ML IV (01:26)
--- NOTE | 2021-08-13 01:40 | HP.PCM.HOS_ITS ---
[facility] General Date of Admission: 08/13/21 Date of Service: 08/13/21 Chief Complaint: Near syncope, lightheadedness, nausea, diaphoresis, shoulder discomfort. HPI Narrative The patient is a 65 y/o F w/ PMHx: Diet-controlled Diabetes mellitus type II, HTN, HLD, PAF w/ cardioversion ~ 2 weeks prior ([facility]), Tachy-Min syndrome s/p pacemaker placement (rate set to 50) who presents to the [facility] ED on 08/13/21 with history of onset lightheadedness as well as nausea with emesis while she was sitting on the couch watching TV with onset of discomfort across the top of her shoulders across her back with slight diaphoresis onset and near syncopal sensation prompting her to call 911 with EMS evaluation with noted bradycardia potential with heart rate in the 40s with administration of Zofran and atropine. Upon transition to the ED patient reports that she feels back to her baseline except she feels cold. She does report a history of an abnormal heart rate and had pacemaker placement approximately 2 years ago at [facility]. Work-up in the ED included T 97.6, heart rate 54, BP 102/57, respiratory rate 15, 96% on room air-->BP 89/50-->100/72, heart rate 50, CBC with WC 12.3, hemoglobin 13, platelet 244 with left shift, coags with INR 2.5, BMP with chloride 110, BUN/creatinine 24/0.73, glucose 170, troponin 5, chest x-ray with no acute cardiopulmonary findings. In the ED patient administered a total of 3 L normal saline and aspirin 324 mg p.o. x 1. [facility] Medical History (Updated 08/13/21 @ 01:[address] Oneil Cunningham MD) Benign essential HTN Chronic atrial fibrillation Depression Diabetes Former tobacco use Scoliosis Tachy-min syndrome Home Medications acetaminophen 1,000 mg PO Q8H PRN PRN 02/17/20 [History Last Taken 02/17/20 08:00] alprazolam 0.25 mg PO QHS PRN 02/17/20 [History Last Taken 02/16/20] calcium carbonate-vitamin D3 1 ea PO DAILY 02/17/20 [History Last Taken Unknown] calcium carbonate-vitamin D3 1 tab PO DAILY 02/17/20 [History Last Taken 02/17/20] ergocalciferol (vitamin D2) 50,000 unit PO WE 02/17/20 [History Last Taken 02/12/20] lisinopril 10 mg PO QHS 02/17/20 [History Last Taken 02/16/20] metoprolol tartrate 25 mg PO BID 02/17/20 [History Last Taken 02/17/20 08:00] vitamin B complex 1 ea PO QHS 02/17/20 [History Last Taken 02/16/20] warfarin 3 mg PO WESA 02/17/20 [History Last Taken 02/15/20] warfarin 6 mg PO SUMOTUTHFR 02/17/20 [History Last Taken 02/17/20 08:00 6 mg] acetaminophen 650 mg PO Q4H PRN PRN tab 02/21/20 [Rx Last Taken Unknown] Allergy/AdvReac Type Severity Reaction Status Date / Time No Known Allergies Allergy Verified 08/13/21 00:19 Family History (Updated 08/13/21 @ 00:[address] Ashley Cramer MD) Mother Hypertension COPD (chronic obstructive pulmonary disease) Father Cancer Hx brain cancer. Surgical History (Updated 08/13/21 @ 00:[address] Ashley Cramer MD) H/O tubal ligation Hx of spinal fusion S/P appendectomy S/P cholecystectomy S/P hysterectomy Status post placement of cardiac pacemaker Status post tonsillectomy and adenoidectomy Social History (Updated 08/13/21 @ 00:[address] Ashley Cramer MD) household members: spouse Smoking Status: Former smoker how long ago did patient quit smoking: Quit 05/08/1974 alcohol intake: current alcohol intake frequency: a few times a month substance use type: does not use ROS ROS Narrative Admission Review of Systems: CONSTITUTIONAL: No weight loss, fever, chills, + weakness or fatigue. HEENT: + Vision tunneling sensation with near syncope. Eyes: No visual loss, blurred vision, double vision or yellow sclerae. Ears, Nose, Throat: No hearing loss, sneezing, congestion, runny nose or sore throat. SKIN: No rash or itching, lesions, wounds. CARDIOVASCULAR: + Shoulder discomfort/? atypical CP, near syncopal sensation, No chest pain, chest pressure or chest discomfort, palpitations, edema, orthopnea. RESPIRATORY: No shortness of breath, cough or sputum, wheezing, hemoptysis. GASTROINTESTINAL: + Anorexia, nausea, vomiting, No diarrhea, abdominal pain, melena, BRBPR. GENITOURINARY: No dysuria, frequency, urgency or retention. NEUROLOGICAL: + Near syncope, LH, dizziness. No headache, paralysis, ataxia, numbness or tingling in the extremities, focal weakness, change in bowel or bladder control, seizure. MUSCULOSKELETAL: + muscle, back pain, joint pain or stiffness. HEMATOLOGIC: + anemia, bleeding or bruising. LYMPHATICS: No enlarged nodes. No history of splenectomy. PSYCHIATRIC: + history of depression or anxiety. ENDOCRINOLOGIC: No reports of sweating, cold or heat intolerance. No polyuria or polydipsia. ALLERGIES: No history of asthma, hives, eczema or rhinitis. Vital Signs Vital Signs Vital Signs: 08/13/21 00:12 08/13/21 00:40 08/13/21 01:12 Temperature 97.6 F L Temperature Source Temporal Pulse Rate 54 L 50 L Respiratory Rate 15 15 Blood Pressure 102/57 L 89/50 L Blood Pressure Mean 72 63 Pulse Ox 96 100 99 Oxygen Delivery Method Room Air Room Air Room Air 08/13/21 01:34 Temperature Temperature Source Pulse Rate Respiratory Rate Blood Pressure 100/72 Blood Pressure Mean 81 Pulse Ox Oxygen Delivery Method Weight Weight: 133 lb 9.602 oz Body Mass Index (BMI) 22.2 Physical Exam Narrative Physical Examination: General: Awake, alert, oriented x 3 and cooperative, seated upright in the ED bed, fatigued appearing. Skin: Normal color, normal turgor, no icterus, no cyanosis. HEENT: AT/NC, EOMI, PERRLA, mildly dry MM, no carotid bruits or JVD noted. Lungs: Mildly diminished bases, appropriate effort, no rales, ronchi or wheezing. Heart: Currently mildly bradycardic with regular rhythm; no gallop, rub audible. Abdomen: Soft, NTTP, ND, distant normal BS, no HSM. Extremities: No cyanosis, clubbing, or edema. Neurological: Patient awake, alert, oriented as noted, cognitive function intact; pupils equally reactive to light and accommodation, cranial nerves II- XII grossly normal, moving all 4 extremities, no focal deficits, strength improved, mildly global decreased. Psychiatric: Affect appears fatigued, no acute evidence of depressive or anxiety feelings. Results Lab / Micro Data Result Diagrams: 08/13/21 00:22 08/13/21 00:52 Labs: Laboratory Results - last 24 hr 08/13/21 00:22: WBC 12.3 H, RBC 4.54, Hgb 13.0, Hct 39.2, MCV 86.3, MCH 28.6, MCHC 33.2, RDW Std Deviation 42.6, RDW Coeff of Del 13.6, Plt Count 244, MPV 9.8, Immature Gran % (Auto) 0.400, Neut % (Auto) 46.8 L, Lymph % (Auto) 45.7 H, [place] % (Auto) 5.9, Eos % (Auto) 0.9, Baso % (Auto) 0.3, Absolute Neuts (auto) 5.8, Absolute Lymphs (auto) 5.63 H, Nucleated RBC % 0 08/13/21 00:22: PT 26.3 H, INR 2.5 08/13/21 00:22: Sodium Cancelled, Potassium Cancelled, Chloride Cancelled, Carbon Dioxide Cancelled, Anion Gap Cancelled, BUN Cancelled, Creatinine Cancelled, Estim Creat Clear Calc Cancelled, Est GFR (MDRD) Af Amer Cancelled, Est GFR (MDRD) Non-Af Cancelled, BUN/Creatinine Ratio Cancelled, Glucose Canc elled, Calcium Cancelled, Troponin I High Sens Cancelled 08/13/21 00:52: Sodium 143, Potassium 3.9, Chloride 110 H, Carbon Dioxide 29.0, Anion Gap 4 L, BUN 24 H, Creatinine 0.73, Estim Creat Clear Calc 49.80, Est GFR (MDRD) Af Amer 102, Est GFR (MDRD) Non-Af 84, BUN/Creatinine Ratio 32.7 H, Glucose 170 H, Calcium 8.8, Troponin I High Sens 5 Radiology Impression Chest X-Ray 08/13/21 00:30 IMPRESSION: Negative portable chest x-ray. Electronically Signed: Sasha Hinojosa MD at 1:25 EDT , Assessment & Plan Assessment/Plan (1) Near syncope: PLAN: The patient is a 65 y/o F w/ PMHx: Diet-controlled Diabetes mellitus type II, HTN, HLD, PAF s/p cardioversion ~ 2 weeks prior, Tachy-Min syndrome s/p pacemaker placement (rate set to 50) who presents to the [facility] ED on 08/13/21 with history of onset lightheadedness as well as nausea while she was sitting on the couch watching TV with onset of discomfort across the top of her shoulders with slight diaphoresis onset and near syncopal sensation prompting her to call 911 with EMS evaluation with noted bradycardia potential with heart rate in the 40s with administration of Zofran and atropine. #1. Near syncope with hypotension and bradycardia: Unclear etiololgy, EKG in ED w/ sinus bradycardia with occasional capture, CXR w/ no acute cardiopulmonary findings, initial trop normal. Will admit to PCU, place on a monitored bed to assure no acute myocardial infarction with serial cardiac enzymes and EKGs. Will maintain on fall precautions, obtain admission orthostatic and AM orthostatic, obtain ECHO, interrogate the device, continue judicious hydration. PT/OT consultation to ascertain stability and discharge needs. Mag, TSH pending. Given rate with EMS some concern for device function. Will consult Cardiology. #2. Tachybradycardia syndrome: Status post pacemaker placement, given presentation some concern although notes capturing at 50 is common, interrogation requested. #3. Chronic atrial fibrillation: INR therapeutic, will continue Coumadin, hold metoprolol given current presentation is noted. Patient had from discussions last been interrogated ~ 3 weeks prior and had been in fibrillation since nearly December which prompted her cardioversion. #4. Hypertension: Patient with low BP upon presentation, unclear exact etiology, will hold metoprolol and lisinopril regimen and resume once appropriate. #5. Hyperlipidemia: Patient not on statin therapy, FLP in a.m. #6. Diet controlled Diabetes mellitus type II: Not on regimen and as noted diet controlled, ADA diet, accu checks w/ ISS. #7. DVT prophylaxis: SCDs, continue Coumadin with INR trending. Charges/Coding Visit Charges OBSV E&M: 26934 Initial observation care L3
[2021-08-13 02:04] LABS: Magnesium 1.7 mg/dL (1.6-2.6)
[2021-08-13 02:12] LABS: Lactic Acid 1.7 mmol/L (0.4-1.9)
--- NOTE | 2021-08-13 02:14 | ECHOCS_ITS ---
Reason For Study: NEAR SYNCOPE Procedure This was a 2D Doppler, Color Flow transthoracic echocardiogram. The study was technically difficult. Exam performed portable in patient room. Left Ventricle Normal left ventricle. The estimated ejection fraction is 55-60 %. Right Ventricle Normal right ventricle. Normal systolic function. Atria Normal left atrium. Normal right atrium. ICD or pacer leads identified within the right atrium. Mitral Valve There is mild mitral annular calcification. Tricuspid Valve Normal tricuspid valve. Trivial tricuspid valve insufficiency. Aortic Valve Normal aortic valve. Pulmonic Valve The pulmonic valve is not well visualized. Great Vessels Normal aortic root. Pericardium/Pleural No pericardial effusion. Medication Diluted definity 4ml given slow IV push to enhance endocardial definition. MMode/2D Measurements & Calculations LVIDd: 4.3 cm IVSd: 0.84 cm Ao root diam: 2.7 cm LVIDs: 2.7 cm LVPWd: 0.92 cm RVDd: 3.3 cm FS: 37.1 % LAV(MOD-bp): 67.2 ml LVAd ap4: 31.8 cm2 SV(MOD-sp4): 69.6 ml LAV(MOD-bp) Indexed: 40.4 ml/m2 LVLd ap4: 8.1 cm LAV(MOD-sp2): 59.1 ml EDV(MOD-sp4): 104.8 ml LAV(MOD-sp4): 67.9 ml EDV(sp4-el): 105.8 ml LVAs ap4: 16.5 cm2 LVLs ap4: 6.4 cm ESV(MOD-sp4): 35.2 ml ESV(sp4-el): 35.8 ml EF(MOD-sp4): 66.4 % EF(sp4-el): 66.2 % SV(sp4-el): 70.0 ml LA A4 area: 22.2 cm2 LA dimension(2D): 3.6 cm RA A4 area: 21.0 cm2 Doppler Measurements & Calculations MV E max jesus: 105.5 cm/sec Lat Peak E' Jesus: 15.5 cm/sec Med Peak E' Jesus: 17.7 cm/sec E/E' lat: 6.8 E/E' med: 5.9 Ao V2 max: 164.8 cm/sec LV V1 max: 111.0 cm/sec PA V2 max: 75.0 cm/sec Ao max P.9 mmHg LV V1 max P.9 mmHg TR max jesus: 301.9 cm/sec TR max P.5 mmHg ECHO/Echo Complete W/ Contrast Interpretation Summary The estimated ejection fraction is 55-60 %. Pacer lead in R.side No significant changes from previous echo Ordering Physician: Ashley Cramer Referring Physician: MARIE BLANCO Performed By: Shirley Tristan RDCS
[2021-08-13] MEDS: 0.9% Normal Saline 1,000 ML 100 ML IV ×3 (02:30→21:39)
[2021-08-13 02:57] LABS: Reflex Troponin-HS? (from REC) Y
[2021-08-13 03:50] LABS: Troponin-I HS 6 pg/mL (3.0-54.0)
[2021-08-13 06:39] LABS: Absolute Lymphocyte Count 2.51 X10^3/uL (0.83-4.51); Absolute Neutrophil Count 5.4 X10^3/uL (2.0-7.7); Basophil# 0.01 X10^3/uL; Basophil% 0.1 % (0-1); Eosinophil# 0.01 X10^3/uL; Eosinophils% 0.1 % (0-5); Hematocrit 34.9 % (37-47); Hemoglobin 11.4 g/dL (12.0-15.0); Lymphocyte # 2.51 X10^3/ul (0.83-4.51); Lymphocyte % 29.4 % (19-41); Mean Corp Hgb Conc 32.7 g/dL (32-36); Mean Corpuscular Hgb 28.8 pg (27.0-32.0); Mean Corpuscular Volume 88.1 fL (81-99); Mean Platelet Vol. 9.8 fl (6.2-12.0); Monocyte# 0.53 X10^3/uL; Monocyte% 6.2 % (0-10); NRBC Flagged by Analyzer 0 % (0-5); Neutrophil # 5.44 X10^3/uL (2.7-7.7); Neutrophil % 63.8 % (47-70); Platelet Count 198 K/mm3 (150-450); RBC Distribution Width CV 13.8 % (11.6-14.6); RBC Distribution Width SD 44.5 fl (35.1-43.9); Red Blood Count 3.96 M/mm3 (4.2-5.4); White Blood Count 8.5 K/mm3 (4.4-11.0)
[2021-08-13 06:50] LABS: Bedside Glucose 139 mg/dL (74-106)
[2021-08-13 06:55] LABS: International Normalized Ratio 2.8; Prothrombin Time (Protime)PT. 28.3 SECONDS (11.7-14.9)
[2021-08-13 07:14] LABS: ALB/GLOB Ratio 1.2 RATIO (0.9-2.4); AST(SGOT) 19 U/L (15-37); Alanine Aminotransfer ALT/SGPT 38 U/L (13-56); Alkaline Phosphatase 59 U/L (45-117); Anion Gap 5 (5-15); BUN 22 mg/dL (7-18); BUN/Creat Ratio 35.1 RATIO (10-20); Calcium,Total 8.2 mg/dL (8.5-10.1); Chloride 110 mmol/L (98-107); Cholesterol 189 mg/dL (200); Creatinine, Serum 0.63 mg/dL (0.55-1.02); EST Glomerular Filtration Rate 101 mL/min (>60); Est Glom Filt Rate - Afr Amer 122 mL/min (>60); Estimated Creatinine Clearance 43.77 ml/min; Globulin 2.6 g/dL (2.2-4.2); Glucose 127 mg/dL (74-106); High Density Lipoprotein 53 mg/dL; Potassium 4.2 mmol/L (3.5-5.1); Protein, Total 5.6 g/dL (6.4-8.2); Sodium Level 141 mmol/L (136-145); Thyroid Stim Hormone (TSH) 0.29 uIU/mL (0.358-3.74); Triglycerides 121 mg/dL; Troponin-I HS 6 pg/mL (3.0-54.0); Very Low Density Lipoprotein 24 mg/dL (5-40)
--- NOTE | 2021-08-13 11:12 | PN.HOSP_ITS ---
Subjective Subjective Patient seen and examined. she was having 2D echo at time of review. She denied any lightheadedness, nausea, vomiting or palpitations. Review of systems is otherwise negative. She does remain bradycardic, but has otherwise remained hemodynamically stable. Objective Data Objective Data Vital Signs: Vital Signs Temp Pulse Resp BP Pulse Ox 97.0 F L 52 L 18 110/61 97 08/13/21 09:55 08/13/21 09:55 08/13/21 09:55 08/13/21 09:55 08/13/21 09:55 Oxygen Delivery Method Room Air Weight: 138 lb 7.205 oz Body Mass Index (BMI) 25.3 Intake & Output: Intake and Output for Last 24 Hours 08/11/21 08/12/21 08/13/21 23:59 23:59 23:59 Intake Total 2221 Balance 2221 Lab / Micro Data Result Diagrams: 08/13/21 06:20 08/13/21 06:20 Labs: Laboratory Results - last 24 hr 08/13/21 00:22: WBC 12.3 H, RBC 4.54, Hgb 13.0, Hct 39.2, MCV 86.3, MCH 28.6, MCHC 33.2, RDW Std Deviation 42.6, RDW Coeff of Del 13.6, Plt Count 244, MPV 9.8, Immature Gran % (Auto) 0.400, Neut % (Auto) 46.8 L, Lymph % (Auto) 45.7 H, [place] % (Auto) 5.9, Eos % (Auto) 0.9, Baso % (Auto) 0.3, Absolute Neuts (auto) 5.8, Absolute Lymphs (auto) 5.63 H, Nucleated RBC % 0 08/13/21 00:22: PT 26.3 H, INR 2.5 08/13/21 00:22: Sodium Cancelled, Potassium Cancelled, Chloride Cancelled, Carbon Dioxide Cancelled, Anion Gap Cancelled, BUN Cancelled, Creatinine Cancelled, Estim Creat Clear Calc Cancelled, Est GFR (MDRD) Af Amer Cancelled, Est GFR (MDRD) Non-Af Cancelled, BUN/Creatinine Ratio Cancelled, Glucose Cancelled, Calcium Cancelled, Troponin I High Sens Cancelled 08/13/21 00:52: Sodium 143, Potassium 3.9, Chloride 110 H, Carbon Dioxide 29.0, Anion Gap 4 L, BUN 24 H, Creatinine 0.73, Estim Creat Clear Calc 49.80, Est GFR (MDRD) Af Amer 102, Est GFR (MDRD) Non-Af 84, BUN/Creatinine Ratio 32.7 H, Glucose 170 H, Calcium 8.8, Troponin I High Sens 5 08/13/21 00:52: Magnesium 1.7 08/13/21 01:30: Lactic Acid 1.7 08/13/21 03:14: Troponin I High Sens 6 08/13/21 06:20: WBC 8.5, RBC 3.96 L, Hgb 11.4 L, Hct 34.9 L, MCV 88.1, MCH 28.8, MCHC 32.7, RDW Std Deviation 44.5 H, RDW Coeff of Del 13.8, Plt Count 198, MPV 9.8, Immature Gran % (Auto) 0.400, Neut % (Auto) 63.8, Lymph % (Auto) 29.4, Reeves % (Auto) 6.2, Eos % (Auto) 0.1, Baso % (Auto) 0.1, Absolute Neuts (auto) 5.4, Ab solute Lymphs (auto) 2.51, Nucleated RBC % 0 08/13/21 06:20: PT 28.3 H, INR 2.8 08/13/21 06:20: Sodium 141, Potassium 4.2, Chloride 110 H, Carbon Dioxide 26.0, Anion Gap 5, BUN 22 H, Creatinine 0.63, Estim Creat Clear Calc 43.77, Est GFR (MDRD) Af Amer 122, Est GFR (MDRD) Non-Af 101, BUN/Creatinine Ratio 35.1 H, Glucose 127 H, Calcium 8.2 L, Total Bilirubin 0.40, AST 19, ALT 38, Alkaline Phosphatase 59, Troponin I High Sens 6, Total Protein 5.6 L, Albumin 3.0 L, Diana bulin 2.6, Albumin/Globulin Ratio 1.2, Triglycerides 121, Cholesterol 189, LDL Cholesterol 112, VLDL Cholesterol 24, HDL Cholesterol 53, TSH 0.29 L 08/13/21 06:44: POC Glucose 139 H Radiography Diagnostic Testing: Radiology Impression Chest X-Ray 08/13/21 00:30 IMPRESSION: Negative portable chest x-ray. Electronically Signed: Sasha Hinojosa MD at 1:25 EDT , Physical Exam Const alert and no apparent distress Exam Limitations: no limitations HEENT head/scalp atraumatic and moist oral mucous membranes Head and Scalp: normocephalic Eyes PERRL, EOMs intact bilaterally and conjunctivae normal Neck no lymphadenopathy Resp normal respiratory effort, no retractions, no use of accessory muscles and clear to auscultation bilaterally Cardio regular rhythm, S1 normal heart sound, S2 normal heart sound and no murmurs Cardio Narrative: bradycardic GI normal to inspection, nondistended, normoactive bowel sounds, soft to palpation, non-tender and non-distended Extremity normal to inspection, full ROM and no clubbing, cyanosis or edema Peripheral Pulses: Yes pulses 2+ throughout Skin no rashes or lesions noted Neuro oriented x3, CN's II-XII intact bilaterally and moves all extremities Sensorium / Orientation: awake and alert Psych affect normal Assessment & Plan Assessment/Plan (1) Bradycardia: (2) Near syncope: PLAN: #Bradycardia with near syncope * still bradycardic; HR was 52 at time of review. HR has gone as low as 49 * pacemaker to be interrogated today * metoprolol on hold * 2D echo ordered and pending * PT/OT on board * Fall precautions * continue gentle hydation with IVF * #History of tachybrady syndrome: s/p pacemaker placement. Pacemaker interrogation pending #Chronic afib * metoprolol on hold due to bradycardia * on coumadin. INR today is therapeutic at 2.8 * #Hypertension * metoprolol and lisinopril on hold due to hypotension * will monitor * #Hyperlipidemia: on statin #Type 2 diabetes mellitus * diet controlled. * On ISS. Accuchecks ACHS * DVT prophylaxis; on coumadin. INR is 2.8 today Charges/Coding Visit Charges Inpatient E&M: 50058 Subs Hosp L2
[2021-08-13] MEDS: 0.9% Saline Lock 10 ML Syringe IV ×2 (11:18→22:27)
[2021-08-13 11:45] LABS: Bedside Glucose 121 mg/dL (74-106)
--- NOTE | 2021-08-13 11:55 | CASEMGMT ---
BERNARDO KURTZ assessment: Face to Face with patient for initial transition planning/care coordination assessment. BERNARDO KURTZ introduced self and role at [facility], pt voices understanding and consents to assessment. Pt is sitting up in chair in no distress on room air. Pt is A/Ox4 and answers all questions appropriately. Care providers, pharmacy, and demographics verified. Presentation: Pt w/ N/V x1 hr, BP 74/40 per squad, HR in 40's Admitting dx: Symptomatic bradycardia, hypotension PCP: Renu Specialists: YG Griffin cardio; YG Saavedra cardio Preferred Pharmacy: [facility] Insurance: [facility]/Ae[facility] Prescription Benefit: Yes Living Will/HPOA: Pt has LW/HPOA and is aware that they are not on file at [facility]. Pt states her , Lamine Alves, is HPOA. LNOK: Lamine Alves, /HPOA Living Arrangements: Pt lives with in mobile home with 3 steps in and states no concerns at home. Pt is independent with ADL's. Transportation: Pt drives self and states no transportation concerns. DME/HHC: Pt only has pacer device equipment at home and states no need for any further DME. Pt states no hx of HHC or SNF. Pt states no concerns with going home at time of discharge. Pt is retired. Pt states does not smoke cigarettes or drink ETOH. Pt states no further concerns/needs. CM to follow for any further discharge planning/needs. Advised pt to ask for CM if any further questions/concerns/needs arise, voices understanding. Pt Goal: Home Plan: [place] BERNARDO KURTZ
[2021-08-13] MEDS: Acetaminophen 325 MG Tablet 650 MG PO (15:57)
[2021-08-13] MEDS: Flecainide 100 MG Tablet 50 MG PO (16:36)
[2021-08-13 16:46] LABS: Bedside Glucose 139 mg/dL (74-106)
--- NOTE | 2021-08-13 17:22 | CON.PCM.CA_ITS ---
Assessment & Plan Assessment/Plan (1) Bradycardia: (2) Near syncope: PLAN: 65-year-old female who recently had cardioversion at [facility] Patient had history of tachybradycardia syndrome s/p pacemaker placement She presented with lightheadedness and dizziness with presyncopal episode. Symptoms resolved no further episode of presyncope or dizziness Cardiac care plan and recommendation 1. Patient with chronic A. fib with a history of a pacemaker and recent cardioversion Currently on Coumadin will continue on Coumadin INR is therapeutic 2. Patient is on flecainide and beta-oliva metoprolol 25 g twice daily for rate control 3. The echocardiographic evaluation showed LV function is preserved, with a pacemaker lead noted on the right side 4. Pacemaker interrogation noted with normal function. 5. We will continue to monitor and follow-up clinically HPI Consult Data Date of Consult: 08/13/21 HPI Narrative Reason for Consultation: Chronic A. fib/Near syncope HPI Narrative: JETHRO NGUYEN, is a 65 F who presents [facility] Medical History (Updated 08/13/21 @ 17:[address] Katherine Hernandez MD) Benign essential HTN Chronic atrial fibrillation Chronic atrial fibrillation Depression Diabetes Former tobacco use Scoliosis Tachy-lakia syndrome Home Medications acetaminophen 1,000 mg PO Q8H PRN PRN 02/17/20 [History Last Taken 02/17/20 08:00] alprazolam 0.25 mg PO QHS PRN 02/17/20 [History Last Taken 02/16/20] calcium carbonate-vitamin D3 1 ea PO DAILY 02/17/20 [History Last Taken Unknown] calcium carbonate-vitamin D3 1 tab PO DAILY 02/17/20 [History Last Taken 02/17/20] ergocalciferol (vitamin D2) 50,000 unit PO WE 02/17/20 [History Last Taken 02/12/20] lisinopril 10 mg PO QHS 02/17/20 [History Last Taken 02/16/20] metoprolol tartrate 25 mg PO BID 02/17/20 [History Last Taken 02/17/20 08:00] vitamin B complex 1 ea PO QHS 02/17/20 [History Last Taken 02/16/20] warfarin 3 mg PO MOWEFR 02/17/20 [History Last Taken 02/15/20] warfarin 6 mg PO SUTUTHSA 02/17/20 [History Last Taken 02/17/20 08:00 6 mg] acetaminophen 650 mg PO Q4H PRN PRN tab 02/21/20 [Rx Last Taken Unknown] flecainide 50 mg PO DAILY 08/13/21 [History Last Taken Unknown] Allergy/AdvReac Type Severity Reaction Status Date / Time No Known Allergies Allergy Verified 08/13/21 00:19 Family History (Updated 08/13/21 @ 00:[address] Ashley Cramer MD) Mother Hypertension COPD (chronic obstructive pulmonary disease) Father Cancer Hx brain cancer. Surgical History (Updated 08/13/21 @ 00:[address] Ashley Cramer MD) H/O tubal ligation Hx of spinal fusion S/P appendectomy S/P cholecystectomy S/P hysterectomy Status post placement of cardiac pacemaker Status post tonsillectomy and adenoidectomy Social History (Updated 08/13/21 @ 00:[address] Ashley Cramer MD) household members: spouse Smoking Status: Former smoker how long ago did patient quit smoking: Quit 05/08/1974 alcohol intake: current alcohol intake frequency: a few times a month substance use type: does not use Physical Exam Narrative Seen and evaluated today at bedside Along with the nursing staff Her symptoms of near syncope improving. Review of cardiac telemetry showed underlying atrial fibrillation Cardiovascular exam S1-S2 is irregular no murmur no systolic or diastolic murmur Left infraclavicular pacemaker site Chest examination clear to auscultation bilateral. Abdomen soft Examination lower extremity no clubbing no cyanosis no lower extremity edema Risk Stratification Risk Stratification Applicable: No Objective Data Vital Signs: Vital Signs Temp Pulse Resp BP Pulse Ox 97.7 F L 73 18 116/60 95 08/13/21 15:43 08/13/21 15:43 08/13/21 15:43 08/13/21 15:43 08/13/21 15:43 Oxygen Delivery Method Room Air Weight: 138 lb 7.205 oz Body Mass Index (BMI) 25.3 Intake & Output: Intake and Output for Last 24 Hours 08/11/21 08/12/21 08/13/21 23:59 23:59 23:59 Intake Total 3537 / 3537 Balance 3537 / 3537 Lab / Micro Data Result Diagrams: 08/13/21 06:20 08/13/21 06:20 Labs: Laboratory Results - last 24 hr 08/13/21 00:22: WBC 12.3 H, RBC 4.54, Hgb 13.0, Hct 39.2, MCV 86.3, MCH 28.6, MCHC 33.2, RDW Std Deviation 42.6, RDW Coeff of Del 13.6, Plt Count 244, MPV 9.8, Immature Gran % (Auto) 0.400, Neut % (Auto) 46.8 L, Lymph % (Auto) 45.7 H, [place] % (Auto) 5.9, Eos % (Auto) 0.9, Baso % (Auto) 0.3, Absolute Neuts (auto) 5.8, Absolute Lymphs (auto) 5.63 H, Nucleated RBC % 0 08/13/21 00:22: PT 26.3 H, INR 2.5 08/13/21 00:22: Sodium Cancelled, Potassium Cancelled, Chloride Cancelled, Carbon Dioxide Cancelled, Anion Gap Cancelled, BUN Cancelled, Creatinine Cancelled, Estim Creat Clear Calc Cancelled, Est GFR (MDRD) Af Amer Cancelled, Est GFR (MDRD) Non-Af Cancelled, BUN/Creatinine Ratio Cancelled, Glucose Cancelled, Calcium Cancelled, Troponin I High Sens Cancelled 08/13/21 00:52: Sodium 143, Potassium 3.9, Chloride 110 H, Carbon Dioxide 29.0, Anion Gap 4 L, BUN 24 H, Creatinine 0.73, Estim Creat Clear Calc 49.80, Est GFR (MDRD) Af Amer 102, Est GFR (MDRD) Non-Af 84, BUN/Creatinine Ratio 32.7 H, Glucose 170 H, Calcium 8.8, Troponin I High Sens 5 08/13/21 00:52: Magnesium 1.7 08/13/21 01:30: Lactic Acid 1.7 08/13/21 03:14: Troponin I High Sens 6 08/13/21 06:20: WBC 8.5, RBC 3.96 L, Hgb 11.4 L, Hct 34.9 L, MCV 88.1, MCH 28.8, MCHC 32.7, RDW Std Deviation 44.5 H, RDW Coeff of Del 13.8, Plt Count 198, MPV 9.8, Immature Gran % (Auto) 0.400, Neut % (Auto) 63.8, Lymph % (Auto) 29.4, [place] % (Auto) 6.2, Eos % (Auto) 0.1, Baso % (Auto) 0.1, Absolute Neuts (auto) 5.4, Absolute Lymphs (auto) 2.51, Nucleated RBC % 0 08/13/21 06:20: PT 28.3 H, INR 2.8 08/13/21 06:20: Sodium 141, Potassium 4.2, Chloride 110 H, Carbon Dioxide 26.0, Anion Gap 5, BUN 22 H, Creatinine 0.63, Estim Creat Clear Calc 43.77, Est GFR (MDRD) Af Amer 122, Est GFR (MDRD) Non-Af 101, BUN/Creatinine Ratio 35.1 H, Glucose 127 H, Calcium 8.2 L, Total Bilirubin 0.40, AST 19, ALT 38, Alkaline Phosphatase 59, Troponin I High Sens 6, Total Protein 5.6 L, Albumin 3.0 L, Globulin 2.6, Albumin/Globulin Ratio 1.2, Triglycerides 121, Cholesterol 189, LDL Cholesterol 112, VLDL Cholesterol 24, HDL Cholesterol 53, TSH 0.29 L 08/13/21 06:44: POC Glucose 139 H 08/13/21 11:37: POC Glucose 121 H 08/13/21 16:36: POC Glucose 139 H Cardiology Labs/Tests 08/13/21 00:22: WBC 12.3 H, RBC 4.54, Hgb 13.0, Hct 39.2, MCV 86.3, MCH 28.6, MCHC 33.2, Plt Count 244, MPV 9.8, Immature Gran % (Auto) 0.400, Neut % (Auto) 46.8 L, Lymph % (Auto) 45.7 H, [place] % (Auto) 5.9, Eos % (Auto) 0.9, Baso % (Auto) 0.3, Absolute Neuts (auto) 5.8, Nucleated RBC % 0 08/13/21 00:22: PT 26.3 H, INR 2.5 08/13/21 00:22: Sodium Cancelled, Potassium Cancelled, Chloride Cancelled, Carbon Dioxide Cancelled, Anion Gap Cancelled, BUN Cancelled, Creatinine Cancelled, Est GFR (MDRD) Af Amer Cancelled, Est GFR (MDRD) Non-Af Cancelled, BUN/Creatinine Ratio Cancelled, Glucose Cancelled, Calcium Cancelled 08/13/21 00:52: Sodium 143, Potassium 3.9, Chloride 110 H, Carbon Dioxide 29.0, Anion Gap 4 L, BUN 24 H, Creatinine 0.73, Est GFR (MDRD) Af Amer 102, Est GFR (MDRD) Non-Af 84, BUN/Creatinine Ratio 32.7 H, Glucose 170 H, Calcium 8.8 08/13/21 00:52: Magnesium 1.7 08/13/21 01:30: Lactic Acid 1.7 08/13/21 06:20: WBC 8.5, RBC 3.96 L, Hgb 11.4 L, Hct 34.9 L, MCV 88.1, MCH 28.8, MCHC 32.7, Plt Count 198, MPV 9.8, Immature Gran % (Auto) 0.400, Neut % (Auto) 63.8, Lymph % (Auto) 29.4, [place] % (Auto) 6.2, Eos % (Auto) 0.1, Baso % (Auto) 0.1, Absolute Neuts (auto) 5.4, Nucleated RBC % 0 08/13/21 06:20: PT 28.3 H, INR 2.8 08/13/21 06:20: Sodium 141, Potassium 4.2, Chloride 110 H, Carbon Dioxide 26.0, Anion Gap 5, BUN 22 H, Creatinine 0.63, Est GFR (MDRD) Af Amer 122, Est GFR (MDRD) Non-Af 101, BUN/Creatinine Ratio 35.1 H, Glucose 127 H, Calcium 8.2 L, Total Bilirubin 0.40, Triglycerides 121, Cholesterol 189, LDL Cholesterol 112, VLDL Cholesterol 24, HDL Cholesterol 53 Rhythm: A. fib with controlled ventricular rate EKG: Sinus bradycardia with sinus arrhythmia 30 degree AV block with frequent AV dual paced complexes ECHO: Systolic function, pacemaker lead noted on the right side Radiography Diagnostic Testing: Radiology Impression Chest X-Ray 08/13/21 00:30 IMPRESSION: Negative portable chest x-ray. Electronically Signed: Sasha Hinojosa MD at 1:25 EDT , Echocardiogram 08/13/21 02:14 Interpretation Summary The estimated ejection fraction is 55-60 %. Pacer lead in R.side No significant changes from previous echo Ordering Physician: Ashley Cramer Referring Physician: MARIE BLANCO Performed By: Shirley Tristan RDCS
[2021-08-13] MEDS: ALPRAZolam 0.25 MG Tablet PO (22:26)
[2021-08-13 22:56] LABS: Bedside Glucose 122 mg/dL (74-106)
[2021-08-14] VITALS (7 sets, daily range): BP systolic 145–181; BP diastolic 72–82; PULSE 56–78; RESP 16–18; TEMP 36.1–36.7; O2SAT 96–100
[2021-08-14] MEDS: Acetaminophen 325 MG Tablet 650 MG PO ×2 (01:22→08:07)
[2021-08-14 06:50] LABS: Bedside Glucose 101 mg/dL (74-106)
[2021-08-14] MEDS: 0.9% Normal Saline 1,000 ML 100 ML IV (07:42)
[2021-08-14] MEDS: Flecainide 100 MG Tablet 50 MG PO (08:05)
[2021-08-14 08:54] LABS: Absolute Lymphocyte Count 2.86 X10^3/uL (0.83-4.51); Basophil# 0.02 X10^3/uL; Basophil% 0.3 % (0-1); Eosinophil# 0.15 X10^3/uL; Eosinophils% 2.3 % (0-5); Hematocrit 38.3 % (37-47); Hemoglobin 12.3 g/dL (12.0-15.0); Lymphocyte # 2.86 X10^3/ul (0.83-4.51); Lymphocyte % 44.6 % (19-41); Mean Corp Hgb Conc 32.1 g/dL (32-36); Mean Corpuscular Hgb 28.4 pg (27.0-32.0); Mean Corpuscular Volume 88.5 fL (81-99); Mean Platelet Vol. 9.8 fl (6.2-12.0); Monocyte# 0.37 X10^3/uL; Monocyte% 5.8 % (0-10); NRBC Flagged by Analyzer 0 % (0-5); Neutrophil # 2.99 X10^3/uL (2.7-7.7); Neutrophil % 46.7 % (47-70); Platelet Count 201 K/mm3 (150-450); RBC Distribution Width CV 13.6 % (11.6-14.6); RBC Distribution Width SD 44.2 fl (35.1-43.9); Red Blood Count 4.33 M/mm3 (4.2-5.4); White Blood Count 6.4 K/mm3 (4.4-11.0)
[2021-08-14 09:06] LABS: Anion Gap 4 (5-15); BUN 13 mg/dL (7-18); BUN/Creat Ratio 25.3 RATIO (10-20); Calcium,Total 8.4 mg/dL (8.5-10.1); Chloride 110 mmol/L (98-107); Creatinine, Serum 0.51 mg/dL (0.55-1.02); EST Glomerular Filtration Rate 127 mL/min (>60); Est Glom Filt Rate - Afr Amer 154 mL/min (>60); Estimated Creatinine Clearance 43.77 ml/min; Glucose 152 mg/dL (74-106); Potassium 4.1 mmol/L (3.5-5.1); Sodium Level 140 mmol/L (136-145)
[2021-08-14 11:35] LABS: Bedside Glucose 143 mg/dL (74-106)
--- NOTE | 2021-08-14 11:49 | DS.PCM_ITS ---
Providers Date of Admission: 08/13/21 Primary Care Physician: Dr. Marie Sears, DO Consultations 08/13/21 02:14 Consult: Cardiology Routine Consulting Provider: Katherine Hernandez Reason for Consult: Near syncope, has pacer but from EMS rate 40, supposed to capture at 50. EMERGENT Consult: No MD Notified: Yes Date Notified: 08/13/21 Time Notified: 01:56 Method of Notification: cortext Reason For Visit: NEAR SYNCOPE, BRADYCARDIA, HYPOTENSION Diagnosis Discharge Diagnosis (1) Bradycardia: Status: Acute Code(s): R00.1 - Bradycardia, unspecified (2) Near syncope: Status: Acute Code(s): R55 - Syncope and collapse Medications at Discharge Home Medications acetaminophen 1,000 mg PO Q8H PRN PRN 02/17/20 alprazolam 0.25 mg PO QHS PRN 02/17/20 calcium carbonate-vitamin D3 1 ea PO DAILY 02/17/20 calcium carbonate-vitamin D3 1 tab PO DAILY 02/17/20 ergocalciferol (vitamin D2) 50,000 unit PO WE 02/17/20 lisinopril 10 mg PO QHS 02/17/20 metoprolol tartrate 25 mg PO BID 02/17/20 vitamin B complex 1 ea PO QHS 02/17/20 warfarin 3 mg PO MOWEFR 02/17/20 warfarin 6 mg PO SUTUTHSA 02/17/20 acetaminophen 650 mg PO Q4H PRN PRN tab 02/21/20 flecainide 50 mg PO DAILY 08/13/21 Hospital Course Operations None Procedures 2-D Echocardiogram Summary of Care Provided Minutes Spent on Discharge: 50 Hospital Course: Patient is a 65 y/o female with a PMh as outlined who was admitted via the ED with a complaint of of lightheadedness and nausea and vomiting. She was sitting on the couch watching tv and had acue onset of lightheadedness, nausea and vomiting, with associated discomfort across her shoulders and increased sweating. She was noted to be bradycardic with heart rate in the 40s when EMS when arrived. She was given atropine by her EMS. She had had a pacemaker inserted ~ 2 years ago o/a of tachybrady syndrome. She was milldy hypotensive in the ED and this improved with administration of IV fluids. CXR showed no acute cardiopulmonrary process. She was admitted to be managed for near syncope. Cardiology was consulted, and she was hydrated with IVF. She had 2D echo showed EF of 55-60% with ICD or pacer leads in the right atrium. Pacer interrogation was normal. She remained stable and symptoms didnt recur. She remained stable and was discharged home on 08/14/2021. 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 Patient seen and examined prior to discharge. was by her bedside. She had no complaints and had an uneventful night. Review of systems is otherwise negative. Labs and vitals reviewed. Home meds reviewed and reconciled. Physical Exam Const alert, oriented x3 and no apparent distress General Appearance: cooperative, comfortable and well kempt Exam Limitations: no limitations HEENT normocephalic, head/scalp atraumatic, hearing grossly normal bilaterally and moist oral mucous membranes Eyes PERRL, EOMs intact bilaterally and conjunctivae normal Neck no lymphadenopathy and supple Resp normal respiratory effort, no retractions, no use of accessory muscles and clear to auscultation bilaterally Cardio regular rate, regular rhythm, S1 normal heart sound, S2 normal heart sound and no murmurs GI normal to inspection, nondistended, normoactive bowel sounds, soft to palpation, non-tender and non-distended Extremity normal to inspection, full ROM and no clubbing, cyanosis or edema Skin no rashes or lesions noted Neuro oriented x3, CN's II-XII intact bilaterally and moves all extremities Sensorium / Orientation: awake and alert Psych affect normal Weight / BMI Weight Weight: 144 lb 6.444 oz Body Mass Index (BMI) 25.3 ABG / Lab / Microbiology Data Result Diagrams: 08/14/21 08:44 08/14/21 08:44 Laboratory: Laboratory Results - last 24 hr 08/13/21 16:36: POC Glucose 139 H 08/13/21 22:08: POC Glucose 122 H 08/14/21 06:25: POC Glucose 101 08/14/21 07:55: Free T4 1.10 08/14/21 08:44: WBC 6.4, RBC 4.33, Hgb 12.3, Hct 38.3, MCV 88.5, MCH 28.4, MCHC 32.1, RDW Std Deviation 44.2 H, RDW Coeff of Del 13.6, Plt Count 201, MPV 9.8, Immature Gran % (Auto) 0.300, Neut % (Auto) 46.7 L, Lymph % (Auto) 44.6 H, [place] % (Auto) 5.8, Eos % (Auto) 2.3, Baso % (Auto) 0.3, Absolute Neuts (auto) 3.0, Absolute Lymphs (auto) 2.86, Nucleated RBC % 0 08/14/21 08:44: Sodium 140, Potassium 4.1, Chloride 110 H, Carbon Dioxide 26.0, Anion Gap 4 L, BUN 13, Creatinine 0.51 L, Estim Creat Clear Calc 43.77, Est GFR (MDRD) Af Amer 154, Est GFR (MDRD) Non-Af 127, BUN/Creatinine Ratio 25.3 H, Glucose 152 H, Calcium 8.4 L 08/14/21 10:39: POC Glucose 143 H Radiography Diagnostic Testing: Radiology Impression Echocardiogram 08/13/21 02:14 Interpretation Summary The estimated ejection fraction is 55-60 %. Pacer lead in R.side No significant changes from previous echo Ordering Physician: Ashley Cramer Referring Physician: MARIE SEARS Performed By: Shirley Tristan RDCS D/C Instructions Discharge Diet: Low fat / Low cholesterol Call your doctor if you observe: Fever of 101 or Higher, Shortness of breath, Dizziness, Swelling in the ankles, Chest pain and Increased palpitations (irregular heartbeat) Meaningful Use Info Meaningful Use Diagnoses (Choose all that apply): None applicable Discharge Plan Admission Admit Date/Time: 08/13/21 09:40 Primary Reason for Your Visit: near syncope Attending Provider: Althea Salas Primary Care Provider: Marie Sears Consulting Providers: Katherine Hernandez Instructions Patient Instructions: ED Near-Fainting, Uncertain Cause Discharge Orders/Prescriptions Prescriptions: Continued warfarin 3 MG tablet 3 mg PO MOWEFR RF: 0 alprazolam 0.25 MG tablet 0.25 mg PO QHS PRN (Reason: Sleep) RF: 0 warfarin 6 MG tablet 6 mg PO SUTUTHSA RF: 0 vitamin B complex 1 EACH tablet 1 ea PO QHS RF: 0 ergocalciferol (vitamin D2) 50,000 UNIT capsule 50,000 unit PO WE RF: 0 metoprolol tartrate 25 MG tablet 25 mg PO BID RF: 0 calcium carbonate-vitamin D3 1 EACH tablet 1 ea PO DAILY RF: 0 calcium carbonate-vitamin D3 1 EACH tablet 1 tab PO DAILY RF: 0 acetaminophen 500 MG tablet 1,000 mg PO Q8H PRN PRN (Reason: Pain Score 1-10) RF: 0 lisinopril 10 MG tablet 10 mg PO QHS RF: 0 acetaminophen 325 MG tablet 650 mg PO Q4H PRN PRN (Reason: Pain Score 1-10) RF: 0 flecainide 50 mg tablet 50 mg PO DAILY RF: 0 Referrals / Follow Up: Damon Carey MD [STAFF PHYSICIAN] - Within 1 Month Marie Sears DO [Primary Care Provider] - Within 2 Weeks Disposition Disposition (needs filled in before D/C Order can be placed): Home, Self Care Charges/Coding Visit Charges Inpatient E&M: 35507 Disch Hosp
== END 2021-08-14 13:52 | disposition home or self-care (01) | DRG 312 ==
LOC: ED 01:51 → PCU 01:57
PROVIDERS: Admitting Provider Family Medicine; Emergency Provider Emergency Medicine; PCP Family Medicine; Visit Provider Student in an Organized Health Care Education/Training Program
DX: R55 Syncope and collapse (principal); I48.20 Chronic atrial fibrillation, unspecified; I49.5 Sick sinus syndrome; I95.9 Hypotension, unspecified; E11.9 Type 2 diabetes mellitus without complications; E78.5 Hyperlipidemia, unspecified; E86.0 Dehydration; R00.1 Bradycardia, unspecified; I10 Essential (primary) hypertension; I44.0 Atrioventricular block, first degree; M41.9 Scoliosis, unspecified; F32.A Depression, unspecified; Z79.01 Long term (current) use of anticoagulants; Z95.0 Presence of cardiac pacemaker; Z87.891 Personal history of nicotine dependence; Z79.899 Other long term (current) drug therapy
CPT/HCPCS: 36415; 71045; 80048; 80053; 80061; 82962; 83605; 83735; 84439; 84443; 84484; 85025; 85610; 93005; 93306; 99285; J7030; Q9957; A4216; C8929

== ENCOUNTER → 2022-10-12 | Outpatient (CLI) | payer MEDICARE, SELFPAY ==
[2022-10-12 13:30] LABS: Color, Urine Yellow (Yellow); Glucose, Dipstick Normal (Normal); Ketone-Dipstick Negative (Negative); Leukocyte Esterase-Dipstick 100 /ul (Negative); Nitrite-Dipstick Negative (Negative); Occult Blood-Urine Negative /ul (Negative); Protein-Dipstick Negative (Negative); Urine Bilirubin Dipstick Negative (Negative); Urine Clarity Clear (Clear); Urine Urobilinogen Normal (Normal)
== END | disposition home or self-care (01) ==
LOC: LABSPEC 08:40
PROVIDERS: PCP Family Medicine; Referring Provider Family Medicine; Visit Provider Family Medicine
DX: R35.0 Frequency of micturition (principal)
CPT/HCPCS: 81002; 87077; 87086; 87088; 87186

== ENCOUNTER → 2024-06-18 | Outpatient (CLI) | payer MEDICARE, SELFPAY ==
--- NOTE | 2024-06-18 09:58 | ECHOCS_ITS ---
Reason For Study Reason For Study: Afib, Aflutter Procedure This was a 2D Doppler, Color Flow transthoracic echocardiogram. Contrast injection was performed. Exam performed in department. Left Ventricle Normal LV size. Left ventricular systolic function is normal. The left ventricular ejection fraction is 60 %. No regional wall motion abnormalities noted. Right Ventricle Normal RV size. ICD or pacer leads identified within the right ventricle. Normal systolic function. Atria Normal left atrium. Normal right atrium. Mitral Valve Normal mitral valve. Mild-Moderate (1-2+) eccentric mitral valve insufficiency. Tricuspid Valve Normal tricuspid valve. Mild (1+) tricuspid valve insufficiency. Pulmonary artery systolic pressure is 35 mmHg. Aortic Valve Trisinus/trileaflet aortic valve. Mild (1+) aortic valve insufficiency. Pulmonic Valve The pulmonic valve is not well visualized. Great Vessels Normal aortic root. The pulmonary artery is normal size. Inferior vena cava collapse with respiration. Pericardium/Pleural No pericardial effusion. Medication Diluted definity 2ml given slow IV push to enhance endocardial definition. MMode/2D Measurements & Calculations LVIDd: 4.5 cm IVSd: 1.1 cm Ao root diam: 3.0 cm LVIDs: 2.8 cm LVPWd: 0.73 cm RVDd: 3.2 cm FS: 38.3 % LAV(MOD-bp): 55.4 ml LVAd ap4: 26.8 cm2 SV(MOD-sp4): 44.1 ml LAV(MOD-bp) Indexed: 34.3 ml/m2 LVLd ap4: 7.6 cm SI(MOD-sp4): 27.2 ml/m2 LAV(MOD-sp2): 45.2 ml EDV(MOD-sp4): 77.0 ml LAV(MOD-sp4): 60.6 ml EDV(sp4-el): 80.2 ml LVAs ap4: 15.5 cm2 LVLs ap4: 5.9 cm ESV(MOD-sp4): 33.0 ml ESV(sp4-el): 34.5 ml EF(MOD-sp4): 57.2 % EF(sp4-el): 57.0 % SV(sp4-el): 45.7 ml LA A4 area: 20.8 cm2 LA dimension(2D): 4.0 cm RA A4 area: 15.1 cm2 TAPSE: 2.7 cm Time Measurements MV dec time: 0.22 sec Doppler Measurements & Calculations MV E max jesus: 74.8 cm/sec Lat Peak E' Jesus: 9.5 cm/sec Med Peak E' Jesus: 8.2 cm/sec MV A max jesus: 68.4 cm/sec E/E' lat: 7.8 E/E' med: 9.1 MV E/A: 1.1 MV dec slope: 341.8 cm/sec2 Ao V2 max: 150.3 cm/sec LV V1 max: 101.6 cm/sec Ao max P.0 mmHg LV V1 max P.1 mmHg Ao V2 mean: 103.5 cm/sec LV V1 mean P.4 mmHg Ao mean P.0 mmHg LV V1 mean: 73.4 cm/sec Ao V2 VTI: 33.5 cm LV V1 VTI: 23.2 cm AV (velocity ratio): 0.69 PA V2 max: 86.1 cm/sec PI end-d jesus: 111.3 cm/sec TR max jesus: 281.8 cm/sec TR max P.8 mmHg ECHO/Echo Complete W/ Contrast Interpretation Summary Normal LV size. Left ventricular systolic function is normal. The left ventricular ejection fraction is 60 %. Mild-Moderate (1-2+) eccentric mitral valve insufficiency. Mild (1+) aortic valve insufficiency. Ordering Physician: Mica Wilkerson Referring Physician: Mica Wilkerson Performed By: Sonam Sesay, ZEESHAN, RVT
== END | disposition home or self-care (01) ==
LOC: CVS 09:58
PROVIDERS: PCP Family Medicine; Referring Provider Physician Assistant Medical; Visit Provider Physician Assistant Medical
DX: I48.0 Paroxysmal atrial fibrillation (principal)
CPT/HCPCS: 93306; Q9957; A4216; C8929